=== PATIENT | female | born 1960 | race Caucasian/White ===

== ENCOUNTER 2016-05-28 10:00 | Emergency (ER) | payer BC, OTHER ==
[2016-05-28] MEDS ORDERED: SODIUM CHLORIDE 0.9% 1,000 ML IV STA (10:39)
[2016-05-28] MEDS ORDERED: HYDROmorphone 1 MG/ML 1 ML SYRINGE IVP STA ×2 (10:39→12:31)
[2016-05-28] MEDS ORDERED: ONDANSETRON 4 MG/2 ML VIAL IVP STA (10:39)
--- NOTE | 2016-05-28 10:42 | ED ---
General Adult HPI - General Chief complaint: Abdominal Pain Stated complaint: abd pain Time Seen by Provider: 05/28/16 10:31 Source: patient, RN notes reviewed Mode of arrival: wheelchair Limitations: no limitations - History of Present Illness Initial comments: Patient 56-year-old female who presents emergency room today with a chief complaint of increased left-sided flank pain. She does admit that she had lower back pain throughout the week but states today pain greatly increased left flank. She admits that she's had some numbness and tingling sensation to both her legs and feet. States it locked up on her. She does admit that she was hyperventilating. Patient states she's never had similar symptoms of of this in the past. Currently rates her pain 10/10 located in the left flank. Describes it as sharp. Does admit to feeling nauseated. Patient denies any recent fever, chills, shortness of breath, chest pain, dysuria or hematuria, constipation or diarrhea, headaches or visual changes, or any other complaints. - Related Data Home Medications Medication Instructions Recorded Confirmed Estradiol [Estrace] 1 mg PO DAILY 05/28/16 05/28/16 Ibuprofen [Motrin] 600 mg PO Q6HR PRN 05/28/16 05/28/16 Sertraline HCl [Zoloft] 100 mg PO DAILY 05/28/16 05/28/16 Previous Rx's Medication Instructions Recorded Ciprofloxacin HCl [Cipro] 500 mg PO Q12HR #20 day 05/28/16 Hydrocodone/Acetaminophen [[employer] 1 each PO Q6HR PRN #20 tab 05/28/16 5-325] Ibuprofen [Motrin] 600 mg PO Q6HR PRN #40 day 05/28/16 Ondansetron Odt [Zofran ODT] 4 mg PO Q8HR PRN #15 tab 05/28/16 Tamsulosin [Flomax] 0.4 mg PO DAILY #3 cap 05/28/16 Allergies Allergy/AdvReac Type Severity Reaction Status Date / Time No Known Allergies Allergy Verified 05/28/16 11:16 Review of Systems ROS Statement: Those systems with pertinent positive or pertinent negative responses have been documented in the HPI. ROS Other: All systems not noted in ROS Statement are negative. Past Medical History Past Medical History: No Reported History History of Any Multi-Drug Resistant Organisms: None Reported Past Surgical History: Appendectomy, Cholecystectomy, Hysterectomy, Orthopedic Surgery, Tonsillectomy Past Psychological History: No Psychological Hx Reported Smoking Status: Current every day smoker Past Alcohol Use History: None Reported Past Drug Use History: None Reported General Exam - General Exam Comments Initial Comments: General: The patient is awake and alert, moderate distress. Eye: Pupils are equal, round and reactive to light, extra-ocular movements are intact. No nystagmus. There is normal conjunctiva bilaterally. No signs of icterus. Ears, nose, mouth and throat: There are moist mucous membranes and no oral lesions. Neck: The neck is supple, there is no tenderness or JVD. Cardiovascular: There is a regular rate and rhythm. No murmur, rub or gallop is appreciated. Respiratory: Lungs are clear to auscultation, respirations are non-labored, breath sounds are equal. No wheezes, stridor, rales, or rhonchi. Gastrointestinal: Normal appearance of the abdomen. Normal bowel sounds. Patient does have tenderness in the left lower quadrant and left flank. Musculoskeletal: Normal ROM, no tenderness. Strength 5/5. Sensation intact. Pulses equal bilaterally 2+. Neurological: A&O x 3. CN II-XII intact, There are no obvious motor or sensory deficits. Coordination appears grossly intact. Speech is normal. Skin: Skin is warm and dry and no rashes or lesions are noted. Psychiatric: Cooperative, appropriate mood & affect, normal judgment. Limitations: no limitations Course Vital Signs 05/28/16 10:02 Temperature 96.6 F L Pulse Rate 91 Respiratory 28 H Rate Blood Pressure 139/95 O2 Sat by Pulse 99 Oximetry Medical Decision Making - Medical Decision Making Patient reexamined at this time shows no signs of distress. Patient's labs been reviewed. Does show large amount of blood with some white cells. Patient' s CT revealing a 5.77 L stone in the proximal left ureter. Results were discussed with the patient. Patient at this time is feeling comfortable. Patient will be discharged home she'll be started on antibiotics also given nausea medication pain medication go home with with Flomax. Patient is advised to follow-up urologist over the next 2 days. Advised return here to emergency room if any symptoms increase or worsen or for any other concerns. - Lab Data Result diagrams: 05/28/16 10:56 05/28/16 10:56 Lab Results 05/28/16 05/28/16 05/28/16 Range/Units 10:56 10:56 11:30 WBC 7.6 (3.8-10.6) k/uL RBC 4.80 (3.80-5.40) m/uL Hgb 14.5 (11.4-16.0) gm/dL Hct 43.8 (34.0-46.0) % MCV 91.2 (80.0-100.0) fL MCH 30.1 (25.0-35.0) pg MCHC 33.0 (31.0-37.0) g/dL RDW 12.8 (11.5-15.5) % Plt Count 297 (150-450) k/uL Neutrophils % 75 % Lymphocytes % 13 % Monocytes % 10 % Eosinophils % 1 % Basophils % 0 % Neutrophils # 5.6 (1.3-7.7) k/uL Lymphocytes # 1.0 (1.0-4.8) k/uL Monocytes # 0.7 (0-1.0) k/uL Eosinophils # 0.1 (0-0.7) k/uL Basophils # 0.0 (0-0.2) k/uL Sodium 141 (137-145) mmol/L Potassium 3.8 (3.5-5.1) mmol/L Chloride 107 (98-107) mmol/L Carbon Dioxide 22 (22-30) mmol/L Anion Gap 12 mmol/L BUN 24 H (7-17) mg/dL Creatinine 1.00 (0.52-1.04) mg/dL Est GFR (MDRD) Af Amer >60 (>60 ml/min/1.73 sqM) Est GFR (MDRD) Non-Af 58 (>60 ml/min/1.73 sqM) Glucose 98 (74-99) mg/dL Calcium 9.4 (8.4-10.2) mg/dL Total Bilirubin 1.2 (0.2-1.3) mg/dL AST 28 (14-36) U/L ALT 32 (9-52) U/L Alkaline Phosphatase 116 (38-126) U/L Total Protein 6.8 (6.3-8.2) g/dL Albumin 4.0 (3.5-5.0) g/dL Amylase 79 (30-110) U/L Lipase 109 (23-300) U/L Urine Color Yellow Urine Appearance Turbid H (Clear) Urine pH 6.5 (5.0-8.0) Ur Specific [place] 1.023 (1.001-1.035) Urine Protein 2+ H (Negative) Urine Glucose (UA) Negative (Negative) Urine Ketones 2+ H (Negative) Urine Blood Large H (Negative) Urine Nitrate Negative (Negative) Urine Bilirubin Negative (Negative) Urine Urobilinogen <2.0 (<2.0) mg/dL Ur Leukocyte Esterase Small H (Negative) Urine RBC >182 H (0-5) /hpf Urine WBC 16 H (0-5) /hpf Ur Squamous Epith Cells 40 H (0-4) /hpf Urine Bacteria Many H (None) /hpf Urine Mucus Many H (None) /hpf Disposition Clinical Impression: Kidney stone Disposition: HOME SELF-CARE Condition: Good Instructions: Kidney Stones (ED) Additional Instructions: Please follow-up urologist over the next 1-2 days. Please use medications as prescribed. Please return here to the emergency room if any symptoms increase worsen or for any other concerns as discussed. Prescriptions: Ciprofloxacin HCl [Cipro] 500 mg PO Q12HR #20 day Hydrocodone/Acetaminophen [[employer] 5-325] 1 each PO Q6HR PRN #20 tab PRN Reason: Pain Ibuprofen [Motrin] 600 mg PO Q6HR PRN #40 day PRN Reason: Pain Ondansetron Odt [Zofran ODT] 4 mg PO Q8HR PRN #15 tab PRN Reason: Nausea Tamsulosin [Flomax] 0.4 mg PO DAILY #3 cap Referrals: None,Stated [Primary Care Provider] - 1-2 days Eliceo Swanson MD [STAFF PHYSICIAN] - 1-2 days Time of Disposition: 13:17
[2016-05-28 11:27] LABS: Basophils % (A) 0 %; CH 30.8; CHCM 33.9; Eosinophils # (A) 0.1 k/uL (0-0.7); Eosinophils % (A) 1 %; HCT 43.8 % (34.0-46.0); HDW 2.29; HGB 14.5 gm/dL (11.4-16.0); Luc # (Auto) 0.14; Luc % (Auto) 2; Lymphocytes % (A) 13 %; MCH 30.1 pg (25.0-35.0); MCV 91.2 fL (80.0-100.0); Mean Platelet Volume 6.4; Monocytes # (A) 0.7 k/uL (0-1.0); Monocytes % (A) 10 %; Neutrophils # (A) 5.6 k/uL (1.3-7.7); Neutrophils % (A) 75 %; RDW 12.8 % (11.5-15.5); WBC 7.6 k/uL (3.8-10.6); WBC (Perox) 7.84
[2016-05-28 11:42] LABS: ALT 32 U/L (9-52); AST 28 U/L (14-36); Alkaline Phosphatase 116 U/L (38-126); Amylase 79 U/L (30-110); Anion Gap 12 mmol/L; Blood Urea Nitrogen 24 mg/dL (7-17); Calcium 9.4 mg/dL (8.4-10.2); Carbon Dioxide 22 mmol/L (22-30); Chloride 107 mmol/L (98-107); Glucose 98 mg/dL (74-99); Non-African American GFR(MDRD) 58 (>60 ml/min/1.73 sqM); Potassium 3.8 mmol/L (3.5-5.1); Sodium 141 mmol/L (137-145); Total Bilirubin 1.2 mg/dL (0.2-1.3); Total Protein 6.8 g/dL (6.3-8.2)
[2016-05-28 11:44] LABS: Appearance,Urine Turbid (Clear); Bacteria,Urine Many /hpf; Bilirubin,Urine Negative (Negative); Glucose,Urine (UA) Negative (Negative); Ketones,Urine 2+ (Negative); Leukocyte Esterase,Urine Small (Negative); Mucus,Urine Many /hpf; Nitrite,Urine Negative (Negative); PH, Urine 6.5 (5.0-8.0); Particle Count 55397; Protein,Urine 2+ (Negative); RBC,Urine >182 /hpf (0-5); Specific Gravity,Urine 1.023 (1.001-1.035); Squamous Epithelial Cell,Urine 40 /hpf (0-4); UA Billing (MACRO vs. MICRO) MICRO; Urobilinogen,Urine <2.0 mg/dL (<2.0); WBC,Urine 16 /hpf (0-5)
--- NOTE | 2016-05-28 12:02 | XR ---
Abdomen HISTORY: Left-sided pain for 3 days Frontal view of the abdomen correlated to prior abdomen 08 April 2013 Left paraspinal calcification measures approximately 8 mm compatible with proximal ureteral calculus on the left. Calcification superimposed over the right kidney measures approximately 7 to 8 mm, surgi lynn clips are present in the right upper quadrant. Breast prostheses are present. Lung bases show pos sible subsegmental atelectatic change. Air-fluid levels, air-filled loops of small bowel are present suggestive of ileus. IMPRESSION: Right-sided nephrolithiasis, proximal left ureteral calculus is suspected.
[2016-05-28] MEDS ORDERED: KETOROLAC 30 MG/ML 1 ML VIAL IVP STA (12:13)
--- NOTE | 2016-05-28 12:25 | CT ---
EXAMINATION TYPE: CT abdomen pelvis wo con DATE OF EXAM: 05/28/2016 12:04 PM COMPARISON: Abdomen film same date, CT abdomen pelvis 08 April 2013 HISTORY: Hematuria, Lt flank pain CT DLP: 717 mGycm Automated exposure control for dose reduction was used. TECHNIQUE: Helical acquisition of images from the lung bases through the pelvis. FINDINGS: Lack of intravenous contrast could compromise sensitivity. LUNG BASES: Some minimal basilar atelectatic changes are present as noted on plain film. AORTA: No significant abnormality is appreciated. LIVER/GB: Cystic focus measuring 15 mm within the left lobe is likely benign. Patient is post cholecy stectomy. PANCREAS: No significant abnormality is seen. SPLEEN: No significant abnormality is seen. ADRENALS: No significant abnormality is seen. KIDNEYS: Left kidney shows hydronephrosis. There is a nonobstructive calculus at the lower pole measu ring approximately 2 mm, additional 1 mm nonobstructive calculus present posteriorly at the left lung base, punctate calcifications measuring 1 mm scattered within the left kidney. Nonobstructive right renal calculus measures 6 to 7 mm. There is likely a cortical cyst at the mid to lower pole which is poorly defined measuring approximately 12 mm. Proximal left ureteral calculus is present measuring ap proximately 5.7 x 7 mm in size. There is some minimal stranding adjacent to the kidney and proximal u reter. REPRODUCTIVE ORGANS: Uterus is not seen. Ovaries not seen with certainty. URINARY BLADDER: Unremarkable. There are likely phleboliths in the pelvis. BOWEL: No significant abnormality is seen. FREE AIR: No Free Air is visible. ASCITES: None visible. PELVIC ADENOPATHY: None visualized. RETROPERITONEAL ADENOPATHY: No Retroperitoneal Adenopathy visible. OSSEOUS STRUCTURES: No significant abnormality is seen. IMPRESSION: PROXIMAL LEFT URETERAL CALCULUS NOTED ON PLAIN FILM WITH HYDRONEPHROSIS. BILATERAL NEPHROLITHIASIS . NONCONTRAST EXAM. POSTOP CHANGES. ADDITIONAL FINDINGS ABOVE.
[2016-05-28 13:45] VITALS: BP 138/79; PULSE 79; RESP 18; TEMP 97.7
== END 2016-05-28 13:45 | disposition home or self-care (01) ==
LOC: EC 10:00
DX: N20.0 Calculus of kidney (principal); N13.2 Hydronephrosis with renal and ureteral calculous obstruction; Z87.442 Personal history of urinary calculi; Z79.899 Other long term (current) drug therapy; F17.200 Nicotine dependence, unspecified, uncomplicated
CPT/HCPCS: 36415; 80053; 82150; 83690; 85025; 81001; 87086; 74000; 74176; 99284; 96374; 96375 ×2; 96376; 96361 ×3; J2405; J1885; J1170

== ENCOUNTER 2016-05-29 10:47 | Observation (INO) | payer OTHER ==
[2016-05-29] MEDS ORDERED: ONDANSETRON 4 MG/2 ML VIAL IVP PRN (13:30)
[2016-05-29] MEDS ORDERED: KETOROLAC 30 MG/ML 1 ML VIAL IM PRN (13:31)
[2016-05-29] MEDS: MORPHINE SULFATE 2 MG/ML SYRINGE IV PRN ×3 (15:19→21:38)
[2016-05-29] MEDS: DEXTROSE 5%-0.45% NACL 1,000 ML IV SCH (15:25)
[2016-05-29] MEDS ORDERED: ceFAZolin 2 GM in SODIUM CHLORIDE 0.9% 100 ML IVPB ONE (18:49)
[2016-05-29] MEDS: HYDROcodone/APAP 5-325MG 1 EACH TAB PO PRN (19:31)
[2016-05-30] MEDS: MORPHINE SULFATE 2 MG/ML SYRINGE IV PRN ×2 (00:09→22:18)
[2016-05-30] MEDS: DEXTROSE 5%-0.45% NACL 1,000 ML IV SCH ×4 (00:10→22:37)
[2016-05-30] MEDS: HYDROcodone/APAP 5-325MG 1 EACH TAB PO PRN ×3 (02:58→20:15)
[2016-05-30] MEDS ORDERED: IV FLUID CONTINUATION 900 ML IV ONE (08:23)
[2016-05-30] MEDS ORDERED: LACTATED RINGERS 1,000 ML IV ONE (09:20)
--- NOTE | 2016-05-30 09:55 | P.OP ---
Date of Procedure: 05/30/16 Preoperative Diagnosis: Left Ureteral Calculus, Left Renal Calculus Postoperative Diagnosis: Same Procedure(s) Performed: Cystoscopy, left ureteroscopy with Holmium laser lithotripsy and stone basketing , left ureteral stent insertion Anesthesia: LEOBARDOA Surgeon: Eliceo Swanson Estimated Blood Loss (ml): 0 IV fluids (ml): 900 Pathology: other (Calculus fragments, sent for chemical analysis.) Condition: stable Disposition: PACU Indications for Procedure: The patient is a 56-year-old white female admitted with left renal colic due to a 7 mm left proximal ureteral calculus. Alternative treatment options were reviewed, and she elected to undergo ureteroscopy with laser lithotripsy. He was reviewed in detail with the patient and her family. Potential risks were explained, including anesthesia, ureteral injury, and inability to successfully remove the calculus. The need for a ureteral stent postoperatively was also discussed. Operative Findings: Left proximal ureteral calculus, fragmented and removed via stone basketing.. Tiny left lower pole renal calculus. Description of Procedure: The patient was taken to the operating room and placed in the dorsolithotomy position, with legs supported in Naresh stirrups. The external genitalia was prepped and draped sterilely. The 30 lens was used to introduce the 19-Stateless Stortz cystoscopic sheath through the urethra and into the bladder under direct vision. The bladder was examined in its entirety. Both ureteral orifices were normal anatomic location and configuration. No tumors or foreign bodies were seen. A 0.038 inch Glidewire was passed through the cystoscope. The left ureteral orifice was cannulated, and the Glidewire was slowly advanced up to the left renal pelvis. An 11/13-Stateless ureteral access catheter was passed over the wire , up to the mid ureter. The Olympus flexible ureteroscope was passed through the ureteral access catheter sheath and up to the calculus, which was located within the proximal ureter. The 200 micron Holmium laser probe was passed through the ureteroscope, and lithotripsy was performed. The calculus was not particularly dense, and it fragmented well. A portion of the calculus refluxed into an upper pole calyx within the left kidney, where fragmentation was completed. A 1.9-Stateless nitinol basket was used to remove the calculus fragments, which were saved and sent for chemical analysis. The lower pole renal calculus was located, but was so small that it could not be engaged within the basket and removed. It ultimately removed into another lower pole calyx where it could no longer be located. The ureteroscope was slowly withdrawn under direct vision, to confirm that there were no residual calculus fragments within the ureter and also to confirm the absence of a ureteral perforation (neither was seeen). The Glidewire was passed through the ureteral access catheter sheath and up to the left renal pelvis. The ureteral access catheter sheath was then removed, and the Glidewire was backloaded into the cystoscope, which was passed into the bladder. A 24 cm, 4.8-Stateless double-J ureteral stent was placed over the wire. Proper stent positioning was verified fluoroscopically and endoscopically. The bladder was emptied and the cystoscope removed. The patient tolerated the procedure well and was taken to the recovery room in stable condition.
[2016-05-30] MEDS: HYDROmorphone 1 MG/ML 1 ML SYRINGE IVP ONE ×2 (10:00→10:06)
[2016-05-31] MEDS: HYDROcodone/APAP 5-325MG 1 EACH TAB PO PRN ×2 (01:07→10:44)
[2016-05-31] MEDS: DEXTROSE 5%-0.45% NACL 1,000 ML IV SCH (05:27)
[2016-05-31 08:06] VITALS: BP 138/72; PULSE 70; RESP 16; TEMP 98
[2016-05-31] MEDS: MORPHINE SULFATE 2 MG/ML SYRINGE IV PRN (08:19)
[2016-05-31] MEDS ORDERED: PROPOFOL 10 MG/ML 20 ML VIAL IV ONE (08:23)
[2016-05-31] MEDS ORDERED: fentaNYL (PF) 50 MCG/ML 2 ML AMP ONE (08:23)
[2016-05-31] MEDS ORDERED: MIDAZOLAM 2 MG/2 ML VIAL ONE (08:23)
[2016-05-31] MEDS ORDERED: ePHEDrine 50 MG/ML 1 ML AMP ONE (08:23)
[2016-05-31] MEDS ORDERED: ESMOLOL 100 MG/10 ML VIAL ONE (08:23)
[2016-05-31] MEDS ORDERED: GLYCOPYRROLATE 0.2 MG/ML 2 ML VIAL ONE (08:23)
--- NOTE | 2016-05-31 08:45 | P.DS ---
Providers Date of admission: 05/29/16 11:34 Expected date of discharge: 05/31/16 Attending physician: Pelon Chery Primary care physician: Pelon Chery [facility] Hospital Course: On the day of admission, the patient was treated with IV hydration and parenteral analgesics. On May 30, she underwent left ureteroscopy with Holmium laser lithotripsy and stone basketing. The ureteral calculus was removed in its entirety, and a ureteral stent was placed. Postoperatively, her pain was much improved, though she continued to experience mild left lower quadrant abdominal discomfort and terminal dysuria. She was afebrile with stable vital signs. Procedures: Cystoscopy, left ureteroscopy with Holmium laser lithotripsy and stone basketing , left ureteral stent insertion on 05/30/2016. Patient Condition at Discharge: Good Plan - Discharge Summary Discharge Medication List Ciprofloxacin HCl [Cipro] 500 mg PO Q12HR #20 day 05/28/16 [Rx] Estradiol [Estrace] 1 mg PO DAILY 05/28/16 [History] Hydrocodone/Acetaminophen [[place] 5-325] 1 each PO Q6HR PRN #20 tab 05/28/16 [Rx] Ibuprofen [Motrin] 600 mg PO Q6HR PRN #40 day 05/28/16 [Rx] Ondansetron Odt [Zofran ODT] 4 mg PO Q8HR PRN #15 tab 05/28/16 [Rx] Sertraline HCl [Zoloft] 100 mg PO DAILY 05/28/16 [History] Tamsulosin [Flomax] 0.4 mg PO DAILY #3 cap 05/28/16 [Rx] Activity/Diet/Wound Care/Special Instructions: Diet as tolerated. Activities as tolerated. Drink plenty of fluids. Patient shouldn't take tamsulosin, and [place] as needed. Ciprofloxacin can be discontinued on 06/01/2016. She will be contacted by my office to be scheduled to undergo removal of her ureteral stent in the office on 06/04/2016. Discharge Disposition: HOME SELF-CARE
--- NOTE | 2016-05-31 12:40 | FL ---
EXAMINATION TYPE: FL guidance operating room DATE OF EXAM: 05/30/2016 9:57 AM FLUOROSCOPY Fluoroscopy time of 35 seconds was used during urologic intervention for left kidney stone and cystos copy. 2 image/s document/s the procedure.
== END 2016-05-31 11:25 | disposition home or self-care (01) ==
LOC: 3OBS 11:34
PROVIDERS: ADMIT Urology; ATTEND Urology
DX: N13.2 Hydronephrosis with renal and ureteral calculous obstruction (principal); F17.200 Nicotine dependence, unspecified, uncomplicated; Z79.899 Other long term (current) drug therapy; Z79.1 Long term (current) use of non-steroidal anti-inflammatories (NSAID); Z79.891 Long term (current) use of opiate analgesic
CPT/HCPCS: 52356; 52352; 96372; 96374; 96376 ×2; 82365; G0378 ×3; G0379; C2625; C1769; C1894; J2250; J0690; J2405; J3010; J1885; J2270 ×3; J1170; J2704

== ENCOUNTER → 2016-06-26 | Outpatient (CLI) | payer OTHER ==
--- NOTE | 2016-06-26 07:56 | US ---
EXAMINATION TYPE: US kidneys/renal and bladder DATE OF EXAM: 06/26/2016 7:44 AM COMPARISON: CT in PACS CLINICAL HISTORY: R93.4 History of Hydronephrosis. Right flank pain, history of renal stones EXAM MEASUREMENTS: Right Kidney: 11.5 x 3.9 x 4.7 cm Left Kidney: 11.4 x 4.6 x 4.7 cm Findings: Right Kidney: No evidence of hydro/ Cyst lower pole= 1.1 x 1.0 x 1.0 cm/ Probable calculus at mid= 0. 8 cm Left Kidney: Appeared wnl, no evidence of hydro Bladder: wnl Bilateral Jets seen: Yes There is no evidence for hydronephrosis at this point in time. No nephrolithiasis is seen. No juma s are identified. The urinary bladder is anechoic. Bilateral ureteral jets are seen. IMPRESSION: Simple cyst lower pole right kidney. 8 mm nonobstructing right renal calculus.
== END | disposition home or self-care (01) ==
LOC: RADUSWWP 07:25
PROVIDERS: ATTEND Urology
DX: N20.0 Calculus of kidney (principal); N28.1 Cyst of kidney, acquired; Z87.448 Personal history of other diseases of urinary system
CPT/HCPCS: 76770

== ENCOUNTER → 2016-12-02 | Outpatient (CLI) | payer OTHER ==
[2016-12-02 15:03] LABS: Basophils % (A) 0 %; CH 30.3; CHCM 32.8; Eosinophils # (A) 0.2 k/uL (0-0.7); Eosinophils % (A) 2 %; HCT 45.6 % (34.0-46.0); HDW 2.27; HGB 15.2 gm/dL (11.4-16.0); Luc # (Auto) 0.21; Luc % (Auto) 3; Lymphocytes # (A) 1.9 k/uL (1.0-4.8); Lymphocytes % (A) 26 %; MCHC 33.3 g/dL (31.0-37.0); MCV 92.9 fL (80.0-100.0); Mean Platelet Volume 6.5; Monocytes # (A) 0.6 k/uL (0-1.0); Monocytes % (A) 8 %; Neutrophils # (A) 4.3 k/uL (1.3-7.7); Neutrophils % (A) 60 %; RBC 4.91 m/uL (3.80-5.40); RDW 13.1 % (11.5-15.5); WBC 7.2 k/uL (3.8-10.6); WBC (Perox) 7.38
[2016-12-02 15:36] LABS: Anion Gap 10 mmol/L; Blood Urea Nitrogen 19 mg/dL (7-17); Calcium 9.1 mg/dL (8.4-10.2); Carbon Dioxide 26 mmol/L (22-30); Chloride 105 mmol/L (98-107); Glucose 82 mg/dL (74-99); Non-African American GFR(MDRD) >60 (>60 ml/min/1.73 sqM); Potassium 4.1 mmol/L (3.5-5.1); Sodium 141 mmol/L (137-145)
== END | disposition home or self-care (01) ==
LOC: LABPAT 14:45
PROVIDERS: ATTEND Urology
DX: Z01.812 Encounter for preprocedural laboratory examination (principal); N20.0 Calculus of kidney; N39.0 Urinary tract infection, site not specified; R35.0 Frequency of micturition; Z79.899 Other long term (current) drug therapy
CPT/HCPCS: 80048; 85025; 87086

== ENCOUNTER 2016-12-11 10:09 | Day surgery (SDC) | payer OTHER ==
[2016-12-08 10:35] VITALS: BMI 22.8
[~2016-12-11 10:09] MED LIST: DEXAMETHASONE SOD PHOSPHATE 10 MG/ML 1 ML VIAL IV ONE; HYDROmorphone 1 MG/ML 1 ML SYRINGE IVP PRN; LACTATED RINGERS 1,000 ML IV SCH; MIDAZOLAM 2 MG/2 ML VIAL IV PRN; ONDANSETRON 4 MG/2 ML VIAL IVP ONE; SCOPOLAMINE 1.5MG/72HR PATCH TRANSDERM ONE; ceFAZolin 2 GM in SODIUM CHLORIDE 0.9% 100 ML IVPB ONE
--- NOTE | 2016-12-11 10:16 | XR ---
EXAMINATION TYPE: XR KUB DATE OF EXAM: 12/11/2016 COMPARISON: 05/28/2016 INDICATION: Preop lithotripsy TECHNIQUE: Single view abdomen supine FINDINGS: There is a normal bowel gas pattern. Psoas margins are normal. No organomegaly is present. There is a 0.8 cm calcification over the mid right kidney. Punctate calcification in the inferior marcelino e left kidney measuring 0.2 cm is not excluded this could be within fecal debris. Phleboliths within the pelvis. Examination appears stable from 05/28/2016 IMPRESSION: 1. 0.8 cm mid right renal calcification.
[2016-12-11] MEDS ORDERED: LIDOCAINE 1% 20 ML VIAL (10MG/ML) FOR IV START INTRADERMA ONE (10:32)
[2016-12-11] MEDS ORDERED: MIDAZOLAM 2 MG/2 ML VIAL ONE (11:56)
[2016-12-11] MEDS ORDERED: LIDOCAINE 1% INJ 10MG/ML (20 ML MDV) ONE (11:56)
[2016-12-11] MEDS ORDERED: SUCCINYLCHOLINE CHLORIDE 100 MG/5 ML SYR IV ONE (11:56)
[2016-12-11] MEDS ORDERED: fentaNYL (PF) 50 MCG/ML 2 ML AMP ONE (11:56)
[2016-12-11] MEDS ORDERED: NEOSTIGMINE 1 MG/ML 10 ML VIAL ONE (11:56)
[2016-12-11] MEDS ORDERED: ROCURONIUM BROMIDE 10 MG/ML 10 ML VIAL IV ONE (11:56)
[2016-12-11] MEDS ORDERED: GLYCOPYRROLATE 0.2 MG/ML 2 ML VIAL ONE (11:56)
[2016-12-11] MEDS ORDERED: PROPOFOL 10 MG/ML 20 ML VIAL IV ONE (11:56)
[2016-12-11] MEDS ORDERED: KETOROLAC 30 MG/ML 1 ML VIAL ONE (11:56)
--- NOTE | 2016-12-11 13:23 | P.OP ---
Date of Procedure: 12/11/16 Preoperative Diagnosis: Right renal calculus Postoperative Diagnosis: Same Procedure(s) Performed: Cystoscopy, right ureteroscopy with Holmium laser lithotripsy, right ureteral stent insertion Implants: Anesthesia: LEOBARDOA Surgeon: Eliceo Swanson Estimated Blood Loss (ml): 5 IV fluids (ml): 700 Pathology: none sent Condition: stable Disposition: PACU Indications for Procedure: She is a 56 year old female with no prior history of kidney stones. She presented with left renal colic due to a left proximal ureteral calculus. She underwent left ureteroscopy with laser lithotripsy to remove the calculus in May 2016. A Litholink study showed oliguria and hypocitraturia, and she was advised to increase her fluid intake and take TheraLith. She now desires treatment for her right renal calculus, and will thus undergo ureteroscopy with laser lithotripsy. Operative Findings: 8 mm mid-pole calculus, fragmented to completion. Description of Procedure: The patient was taken to the operating room and placed in the dorsolithotomy position, with legs supported in Naresh stirrups. The external genitalia was prepped and draped sterilely. The 30 lens was used to introduce the 19-[place] Stortz cystoscopic sheath through the urethra and into the bladder under direct vision. The bladder was examined in its entirety. Both ureteral orifices were normal anatomic location and configuration, and clear urine effluxed from both. No tumors or foreign bodies were seen. A 0.038 inch Glidewire was passed through the cystoscope. The right ureteral orifice was cannulated, and the Glidewire was advanced up to the right renal pelvis. An 11/13-[place]ian ureteral access catheter was passed over the wire, but resistance was met at the level of the iliac vessels. Therefore, the ureteral access catheter was removed and the Olympus flexible ureteroscope was advanced over the Glidewire, up to the right renal pelvis. The 200 micron Holmium laser probe was passed through the ureteroscope, and lithotripsy was performed. Using a dusting technique, the calculus was fragmented completely. There were no residual calculus fragments exceeding the diameter of the laser fiber tip. The Glidewire was passed through the ureteroscope, which was then removed. The Glidewire was backloaded into the cystoscope, which was passed into the bladder. A 24 cm, 4.8-[place] double-J ureteral stent was placed over the wire. Proper stent positioning was verified fluoroscopically and endoscopically. The bladder was emptied and the cystoscope removed. The patient tolerated the procedure well and was taken to the recovery room in stable condition.
--- NOTE | 2016-12-11 13:26 | FL ---
Fluoroscopy INDICATION: Pain FINDINGS: Fluoroscopy time: 9 seconds. Images obtained: 1. IMPRESSIONS: 1. Documentation of fluoroscopy.
[2016-12-11] MEDS ORDERED: LACTATED RINGERS 1,000 ML IV ONE (13:30)
[2016-12-11 13:44] VITALS: TEMP 97
[2016-12-11 14:07] VITALS: RESP 16
[2016-12-11] MEDS ORDERED: ONDANSETRON 4 MG/2 ML VIAL IVP ONE (14:07)
[2016-12-11] MEDS ORDERED: METOCLOPRAMIDE 5 MG/ML 2 ML VIAL IVP ONE (14:21)
[2016-12-11 15:05] VITALS: PULSE 55
[2016-12-11 15:44] VITALS: BP 143/80
== END 2016-12-11 16:04 | disposition home or self-care (01) ==
LOC: OR 10:09
PROVIDERS: ATTEND Urology
DX: N13.2 Hydronephrosis with renal and ureteral calculous obstruction (principal); Z79.1 Long term (current) use of non-steroidal anti-inflammatories (NSAID); Z79.891 Long term (current) use of opiate analgesic; Z79.899 Other long term (current) drug therapy
CPT/HCPCS: 74000; 50590; 52332; C2625; C1769; C1894; J2250; J1100; J2710; J2765; J0690; J2405; J2001; J3010; J1885; J0330; J2704

== ENCOUNTER → 2016-12-22 | Outpatient (CLI) | payer OTHER ==
--- NOTE | 2016-12-22 17:05 | US ---
EXAMINATION TYPE: US kidneys/renal and bladder DATE OF EXAM: 12/22/2016 COMPARISON: 06/26/2016 ultrasound. CLINICAL HISTORY: N20.0 Calculus of kidney; right flank pain, hematuria; right renal stone was retrie mona 11 days ago EXAM MEASUREMENTS: Right Kidney: 11.1 x 4.8 x 3.8 cm Left Kidney: 11.4 x 4.0 x 4.8 cm Post Void Residual Volume: 14.2 mL Right Kidney: mid cortical cyst = 0.8 x 0.9 x 0.7cm and inferior cortical cyst = 0.7 x 0.7 x 0.6cm Left Kidney: No hydronephrosis or masses seen Bladder: wnl Bilateral Jets seen: Yes Normal Post Void Residual: Yes IMPRESSION: Small right renal cortical cysts. No evidence of solid renal mass or obstruction. Satisfactory bladde r emptying. A calculus in the right kidney is not identified that is suggested by the previous ultras ound exam.
== END ==
LOC: RADUSWWP 16:10
PROVIDERS: ATTEND Urology
DX: N28.1 Cyst of kidney, acquired (principal)
CPT/HCPCS: 76770

== ENCOUNTER 2018-02-12 18:20 | Observation (INO) | payer BC, OTHER ==
[2018-02-12] MEDS ORDERED: KETOROLAC 30 MG/ML 1 ML VIAL IVP STA (18:40)
[2018-02-12] MEDS ORDERED: SODIUM CHLORIDE 0.9% 500 ML 500 ML IV STA (18:40)
[2018-02-12] MEDS ORDERED: HYDROmorphone 1 MG/ML 1 ML SYRINGE IVP STA (18:40)
[2018-02-12] MEDS ORDERED: ONDANSETRON 4 MG/2 ML VIAL IVP STA (18:40)
--- NOTE | 2018-02-12 18:54 | ED ---
General Adult HPI - General Chief complaint: Abdominal Pain Stated complaint: POSS KIDNEY STONES Time Seen by Provider: 02/12/18 18:37 Source: patient, family, RN notes reviewed, old records reviewed Mode of arrival: ambulatory Limitations: no limitations - History of Present Illness Initial comments: Chief complaint and history of present illness a 77-year-old female here for complaint of nausea and acute severe left flank pain radiates around toward the left lower quadrant. Patient states she had a kidney stone proximal one year ago and this feels like another stone. The pain started acutely at 1 PM today. - Related Data Home Medications Medication Instructions Recorded Confirmed Estradiol [Estrace] 1 mg PO DAILY 05/28/16 12/11/16 Sertraline [Zoloft] 50 mg PO DAILY 12/08/16 12/11/16 Previous Rx's Medication Instructions Recorded Hydrocodone/Acetaminophen [[place] 1 - 2 each PO Q4HR PRN #20 tab 12/11/16 5-325] Allergies Allergy/AdvReac Type Severity Reaction Status Date / Time No Known Allergies Allergy Verified 12/08/16 10:21 Review of Systems ROS Statement: Those systems with pertinent positive or pertinent negative responses have been documented in the HPI. Review of systems no other complaints other than left flank pain that radiates around toward the left mid to lower abdomen. Nausea no vomiting. Patient can' t sit still because of the pain. At 1 PM she developed abdominal discomfort large amount of diarrhea and flank pain. Also the pain was acute onset typical of her kidney stones in the past. All systems reviewed. Past medical problems significant for kidney stones. The patient's surgeries include appendectomy, cholecystectomy, hysterectomy, bilateral knee surgeries and tonsillectomy. Family history noncontributory. The patient is a smoker strongly encouraged to stop denies alcohol use this time. ALLERGIES none. ROS Other: All systems not noted in ROS Statement are negative. Past Medical History Past Medical History: No Reported History Additional Past Medical History / Comment(s): KIDNEY STONES. History of Any Multi-Drug Resistant Organisms: None Reported Past Surgical History: Appendectomy, Cholecystectomy, Hysterectomy, Orthopedic Surgery, Tonsillectomy Additional Past Surgical History / Comment(s): bilateral knee arthroscopies and open bilateral knee surgeries, L hip cyst removed., LEFT URETERAL CALCULUS- LITHOTRIPSY WITH STONE BASKETING AND STENT (05/30/16) Past Anesthesia/Blood Transfusion Reactions: No Reported Reaction Past Psychological History: Anxiety Smoking Status: Current every day smoker Past Alcohol Use History: None Reported Past Drug Use History: None Reported - Past Family History Mother Family Medical History: No Reported History Father Family Medical History: Coronary Artery Disease (CAD) Additional Family Medical History / Comment(s): Father is 72yrs old. General Exam Limitations: no limitations Course Vital Signs 02/12/18 02/12/18 02/12/18 18:28 19:02 19:03 Temperature 97.5 F L Pulse Rate 92 87 97 Respiratory 18 16 16 Rate Blood Pressure 160/89 164/103 O2 Sat by Pulse 98 95 100 Oximetry 02/12/18 02/12/18 19:50 20:00 Temperature 98.0 F Pulse Rate 97 Respiratory 18 Rate Blood Pressure 152/98 152/98 O2 Sat by Pulse 99 Oximetry Medical Decision Making - Medical Decision Making Medical decision making; this is a 57-year-old female with known history of kidney stones. She also has terrible bowel syndrome. At approximate 1 PM today she developed acute discomfort had diarrhea and the pain persists from the left flank toward the left lower quadrant area. Labs show white count of 10.7 hemoglobin 15.7 hematocrit 47 with a potassium 4.7. BUN 23 creatinine 0.93 to GFR 70. The patient's sugar is 133, creatinine elevated 11.3. The patient's amylase is 114 lipase 146. Urine shows moderate blood with 53 rbc's and 7 WBCs. Otherwise no signs of infection. X-ray of the abdomen and pelvis was done and reviewed by radiologist his impression is ; suspected 6 mm and 4 mm calculi located in the proximal left ureter. Correlate for renal colic. As read by Dr. Bailon urine was cultured CT of the abdomen and pelvis is done without IV contrast. Significant findings nonobstructive 4 mm adjacent punctate 2 mm calculi in the right kidney and stable subtle 1 cm hyperdensity lateral mid lower pole right kidney probably a cyst given his stability. There is moderate left-sided hydronephrosis with prominent perinephric edema. Nonobstructive punctate 2 mm calculi in the left kidney and 2 adjacent 4 and 3 mm calculi in the upper left ureter. No dilated small bowel, free fluid or free air. No mesenteric or retroperitoneal lymphadenopathy. Impression #14 mm and adjacent 3 mm calculus in the upper left ureter causing moderate obstructive uropathy. #2 there is extensive perinephric edema and fluid that could represent pyelosinus backflow rupture with urine extravasation or superimposed infection. The edema is more than expected for the degree of obstruction. #3 additional small nonobstructive calculi measuring up to 4 mm. Number for mild sigmoid diverticulosis. As read by Dr. Bailon. Case discussed with Dr. Chery, patient be admitted his service for further evaluation and management. Labs, x-ray and CT report discussed with patient and her urologist. - Lab Data Result diagrams: 02/12/18 18:48 02/12/18 18:48 Lab Results 02/12/18 02/12/18 02/12/18 Range/Units 18:48 18:48 20:10 WBC 10.7 H (3.8-10.6) k/uL RBC 5.08 (3.80-5.40) m/uL Hgb 15.7 (11.4-16.0) gm/dL Hct 47.2 H (34.0-46.0) % MCV 92.9 (80.0-100.0) fL MCH 30.8 (25.0-35.0) pg MCHC 33.2 (31.0-37.0) g/dL RDW 12.9 (11.5-15.5) % Plt Count 347 (150-450) k/uL Neutrophils % 80 % Lymphocytes % 11 % Monocytes % 6 % Eosinophils % 1 % Basophils % 0 % Neutrophils # 8.6 H (1.3-7.7) k/uL Lymphocytes # 1.2 (1.0-4.8) k/uL Monocytes # 0.7 (0-1.0) k/uL Eosinophils # 0.1 (0-0.7) k/uL Basophils # 0.0 (0-0.2) k/uL Sodium 138 (137-145) mmol/L Potassium 4.7 (3.5-5.1) mmol/L Chloride 105 (98-107) mmol/L Carbon Dioxide 22 (22-30) mmol/L Anion Gap 11 mmol/L BUN 23 H (7-17) mg/dL Creatinine 0.93 (0.52-1.04) mg/dL Est GFR (CKD-EPI)AfAm 81 (>60 ml/min/1.73 sqM) Est GFR (CKD-EPI)NonAf 70 (>60 ml/min/1.73 sqM) Glucose 133 H (74-99) mg/dL Calcium 11.3 H (8.4-10.2) mg/dL Total Bilirubin 0.8 (0.2-1.3) mg/dL AST 36 (14-36) U/L ALT 30 (9-52) U/L Alkaline Phosphatase 102 (38-126) U/L Total Protein 7.9 (6.3-8.2) g/dL Albumin 4.8 (3.5-5.0) g/dL Amylase 114 H (30-110) U/L Lipase 146 (23-300) U/L Urine Color Light Yellow Urine Appearance Clear (Clear) Urine pH 7.0 (5.0-8.0) Ur Specific [place] 1.008 (1.001-1.035) Urine Protein Negative (Negative) Urine Glucose (UA) Negative (Negative) Urine Ketones Negative (Negative) Urine Blood Moderate H (Negative) Urine Nitrite Negative (Negative) Urine Bilirubin Negative (Negative) Urine Urobilinogen <2.0 (<2.0) mg/dL Ur Leukocyte Esterase Trace H (Negative) Urine RBC 53 H (0-5) /hpf Urine WBC 7 H (0-5) /hpf Ur Squamous Epith Cells 2 (0-4) /hpf Urine Bacteria Few H (None) /hpf Urine Mucus Few H (None) /hpf Disposition Clinical Impression: Calcium ureterolithiasis Disposition: ADMITTED IP TO THIS [facility] Condition: Serious Is patient prescribed a controlled substance at d/c from ED?: No Referrals: None,Stated [Primary Care Provider] - 1-2 days
[2018-02-12 18:59] LABS: Basophils % (A) 0 %; Eosinophils # (A) 0.1 k/uL (0-0.7); Eosinophils % (A) 1 %; HCT 47.2 % (34.0-46.0); HGB 15.7 gm/dL (11.4-16.0); Lymphocytes # (A) 1.2 k/uL (1.0-4.8); Lymphocytes % (A) 11 %; MCH 30.8 pg (25.0-35.0); MCHC 33.2 g/dL (31.0-37.0); MCV 92.9 fL (80.0-100.0); Mean Platelet Volume 6.6; Monocytes # (A) 0.7 k/uL (0-1.0); Monocytes % (A) 6 %; Neutrophils # (A) 8.6 k/uL (1.3-7.7); Neutrophils % (A) 80 %; Platelet Count 347 k/uL (150-450); RBC 5.08 m/uL (3.80-5.40); RDW 12.9 % (11.5-15.5); WBC 10.7 k/uL (3.8-10.6)
[2018-02-12 19:08] LABS: Albumin 4.8 g/dL (3.5-5.0); Calcium 11.3 mg/dL (8.4-10.2); Potassium 4.7 mmol/L (3.5-5.1); Total Bilirubin 0.8 mg/dL (0.2-1.3); Total Protein 7.9 g/dL (6.3-8.2)
--- NOTE | 2018-02-12 19:33 | XR ---
EXAMINATION TYPE: XR KUB DATE OF EXAM: 02/12/2018 CLINICAL DATA: 57 year-old female left flank pain, PHH COMPARISON: 12/11/2016 FINDINGS: Lung bases are clear. No evidence for free intraperitoneal air. No dilated small bowel or air-fluid levels. Scattered air and stool seen throughout the colon extendi ng distally into the rectum. No significant stool burden. No suspicious calcifications identified. Previous calcification seen in the left midabdomen are more inferiorly and medially positioned now. This seems to be 2 calculi measuring 6 mm and 4 mm cyst. Ther e are the L3-L4 level paralleling the transverse processes. Mild degenerative changes at the hips. IMPRESSION: Suspected 6 mm and 4 mm calculi located in the proximal left ureter. Correlate for renal colic.
[2018-02-12 20:23] LABS: Appearance,Urine Clear (Clear); Bacteria,Urine Few /hpf; Bilirubin,Urine Negative (Negative); Blood,Urine Moderate (Negative); Color,Urine Light Yellow; Glucose,Urine (UA) Negative (Negative); Ketones,Urine Negative (Negative); Leukocyte Esterase,Urine Trace (Negative); Mucus,Urine Few /hpf; Nitrite,Urine Negative (Negative); Protein,Urine Negative (Negative); RBC,Urine 53 /hpf (0-5); Specific Gravity,Urine 1.008 (1.001-1.035); Squamous Epithelial Cell,Urine 2 /hpf (0-4); Urobilinogen,Urine <2.0 mg/dL (<2.0); WBC,Urine 7 /hpf (0-5)
--- NOTE | 2018-02-12 20:32 | CT ---
EXAMINATION TYPE: CT abdomen pelvis wo con DATE OF EXAM: 02/12/2018 COMPARISON: 05/28/2016 HISTORY: 57-year-old female Left side flank and groin pain. CT DLP: 344.7 mGycm. Automated exposure control for dose reduction was used. TECHNIQUE: Contiguous axial scanning of the abdomen and pelvis without IV contrast. Coronal and sagit ronnell reconstructions performed. FINDINGS: Heart normal size with trace anterior pericardial fluid. Dependent atelectasis without pleural effusi on. Noncontrast images of the liver show a 1.7 cm cyst centrally in the right lobe, unchanged. Cholecyste ctomy clips. Liver mildly enlarged at 18.2 cm. Mild diffuse thickening of the left adrenal gland is unchanged. Right adrenal gland within normal lynch its. Nonobstructive 4 mm an adjacent punctate 2 mm calculi in the right kidney and stable subtle 1 cm hypo density lateral mid to lower pole right kidney probably a cyst given its stability. Spleen and pancreas show no gross abnormality by noncontrast CT. There is moderate left-sided hydronephrosis with prominent perinephric edema. Nonobstructive punctate 2 mm calculi in the left kidney and 2 adjacent 4 and 3 mm calculi in the upper left ureter.. No dilated small bowel, free fluid, or free air. No mesenteric or retroperitoneal lymphadenopathy. Pgms-qm-nlcaalne stool in the right hemicolon and mild sigmoid diverticulosis. No pericolonic inflamm atory change. Multiple pelvic phleboliths. Bladder is urine distended. Prostate gland measures 3.9 cm wide. No abno rmal fluid collection in the pelvis or pelvic lymphadenopathy. Bones: Mild degenerative changes at the hips. No osseous destructive process. IMPRESSION: 1. A 4 mm and adjacent 3 mm calculus in the upper left ureter causing moderate obstructive uropathy. 2. There is extensive perinephric edema/fluid that could represent pyelosinus backflow (tiny calycea l rupture with urine extravasation) or superimposed infection. The edema is more than expected for th e degree of obstruction. 3. Additional small nonobstructive calculi measuring up to 4 mm. 4. Mild sigmoid diverticulosis.
[2018-02-12] MEDS ORDERED: NALOXONE 0.4 MG/ML 1 ML VIAL IV PRN (21:11)
[2018-02-12] MEDS ORDERED: ONDANSETRON 4 MG/2 ML VIAL IVP PRN (21:11)
[2018-02-12] MEDS: SODIUM CHLORIDE 0.9% 1,000 ML IV SCH (21:32)
[2018-02-12] MEDS: HYDROmorphone 1 MG/ML 1 ML SYRINGE IVP PRN ×2 (21:32→23:52)
[2018-02-13 00:06] VITALS: BMI 22.8
[2018-02-13] MEDS: HYDROmorphone 1 MG/ML 1 ML SYRINGE IVP PRN ×2 (06:09→09:23)
[2018-02-13 07:52] LABS: Glucose,Whole Blood 85 mg/dL (75-99)
--- NOTE | 2018-02-13 08:09 | P.GSHP ---
History of Present Illness H&P Date: 02/13/18 57 yo female with left ureteral colic due to a 6 mm mid ureteral stone SHe has had previous stone manipulations[betrus] She is still in pain SHe is admitted for pain control and further management of the stone - Genitourinary (Female) Genitourinary: Reports as per HPI Past Medical History Past Medical History: No Reported History Additional Past Medical History / Comment(s): KIDNEY STONES. History of Any Multi-Drug Resistant Organisms: None Reported Past Surgical History: Appendectomy, Cholecystectomy, Hysterectomy, Orthopedic Surgery, Tonsillectomy Additional Past Surgical History / Comment(s): bilateral knee arthroscopies and open bilateral knee surgeries, L hip cyst removed., LEFT URETERAL CALCULUS- LITHOTRIPSY WITH STONE BASKETING AND STENT (05/30/16) Past Anesthesia/Blood Transfusion Reactions: No Reported Reaction Past Psychological History: Anxiety Additional Psychological History / Comment(s): . Smoking Status: Current every day smoker Past Alcohol Use History: None Reported Additional Past Alcohol Use History / Comment(s): Pt started smoking in 1979 and is less than a ppd smoker. Smoking for 37 years. Past Drug Use History: None Reported - Past Family History Mother Family Medical History: No Reported History Father Family Medical History: Coronary Artery Disease (CAD) Additional Family Medical History / Comment(s): Father is 72yrs old. Medications and Allergies Home Medications Medication Instructions Recorded Confirmed Type Estradiol [Estrace] 1 mg PO DAILY 05/28/16 12/11/16 History Sertraline [Zoloft] 50 mg PO DAILY 12/08/16 12/11/16 History Hydrocodone/Acetaminophen [[place] 1 - 2 each PO Q4HR PRN #20 tab 12/11/16 Rx 5-325] Allergies Allergy/AdvReac Type Severity Reaction Status Date / Time No Known Allergies Allergy Verified 12/08/16 10:21 Surgical - Exam Vital Signs Temp Pulse Resp BP Pulse Ox 97.5 F L 92 18 160/89 98 02/12/18 18:28 02/12/18 18:28 02/12/18 18:28 02/12/18 18:28 02/12/18 18:28 - General well developed, well nourished, moderate distress - Eyes PERRL - ENT no hearing loss - Neck no masses, trachea midline - Respiratory normal expansion, normal respiratory effort - Cardiovascular Rhythm: regular - Abdomen Abdomen: tender - Integumentary no rash, no growths - Neurologic normal coordination, normal sensation - Musculoskeletal normal posture - Psychiatric oriented to time, oriented to person, oriented to place, speech is normal, memory intact Results - Labs 02/12/18 18:48 02/12/18 18:48 Abnormal Lab Results - Last 24 Hours (Table) 02/12/18 02/12/18 02/12/18 Range/Units 18:48 18:48 20:10 WBC 10.7 H (3.8-10.6) k/uL Hct 47.2 H (34.0-46.0) % Neutrophils # 8.6 H (1.3-7.7) k/uL BUN 23 H (7-17) mg/dL Glucose 133 H (74-99) mg/dL Calcium 11.3 H (8.4-10.2) mg/dL Amylase 114 H (30-110) U/L Urine Blood Moderate H (Negative) Ur Leukocyte Esterase Trace H (Negative) Urine RBC 53 H (0-5) /hpf Urine WBC 7 H (0-5) /hpf Urine Bacteria Few H (None) /hpf Urine Mucus Few H (None) /hpf Microbiology - Last 24 Hours (Table) 02/12/18 20:10 Urine Culture - Preliminary Urine,Voided Diabetes panel 02/12/18 Range/Units 18:48 Sodium 138 (137-145) mmol/L Potassium 4.7 (3.5-5.1) mmol/L Chloride 105 (98-107) mmol/L Carbon Dioxide 22 (22-30) mmol/L BUN 23 H (7-17) mg/dL Creatinine 0.93 (0.52-1.04) mg/dL Glucose 133 H (74-99) mg/dL Calcium 11.3 H (8.4-10.2) mg/dL AST 36 (14-36) U/L ALT 30 (9-52) U/L Alkaline Phosphatase 102 (38-126) U/L Total Protein 7.9 (6.3-8.2) g/dL Albumin 4.8 (3.5-5.0) g/dL Calcium panel 02/12/18 Range/Units 18:48 Calcium 11.3 H (8.4-10.2) mg/dL Albumin 4.8 (3.5-5.0) g/dL Pituitary panel 02/12/18 Range/Units 18:48 Sodium 138 (137-145) mmol/L Potassium 4.7 (3.5-5.1) mmol/L Chloride 105 (98-107) mmol/L Carbon Dioxide 22 (22-30) mmol/L BUN 23 H (7-17) mg/dL Creatinine 0.93 (0.52-1.04) mg/dL Glucose 133 H (74-99) mg/dL Calcium 11.3 H (8.4-10.2) mg/dL Adrenal panel 02/12/18 Range/Units 18:48 Sodium 138 (137-145) mmol/L Potassium 4.7 (3.5-5.1) mmol/L Chloride 105 (98-107) mmol/L Carbon Dioxide 22 (22-30) mmol/L BUN 23 H (7-17) mg/dL Creatinine 0.93 (0.52-1.04) mg/dL Glucose 133 H (74-99) mg/dL Calcium 11.3 H (8.4-10.2) mg/dL Total Bilirubin 0.8 (0.2-1.3) mg/dL AST 36 (14-36) U/L ALT 30 (9-52) U/L Alkaline Phosphatase 102 (38-126) U/L Total Protein 7.9 (6.3-8.2) g/dL Albumin 4.8 (3.5-5.0) g/dL - Imaging CT scan - abdomen: report reviewed, image reviewed CT scan - chest: image reviewed CT scan - pelvis: report reviewed Assessment and Plan Assessment: Impression: Left ureteral stone with colic Plan": cysto left ureteroscopy and laser litho probable stent placement
[2018-02-13] MEDS ORDERED: ESTRADIOL 0.5 MG TAB PO SCH (09:00)
[2018-02-13] MEDS ORDERED: CARBAMIDE PEROXIDE 6.5% DROPS 15 ML BTL LEFT EAR SCH (09:00)
[2018-02-13] MEDS ORDERED: SERTRALINE 50 MG TAB PO SCH (09:00)
[2018-02-13] MEDS: SODIUM CHLORIDE 0.9% 1,000 ML IV SCH ×2 (09:14→17:30)
[2018-02-13] MEDS ORDERED: IV FLUID CONTINUATION 1,000 ML IV ONE (13:36)
[2018-02-13] MEDS ORDERED: ceFAZolin 1,000 MG/50 ML BAG (PMX) IVPB ONE (14:02)
[2018-02-13] MEDS ORDERED: fentaNYL (PF) 50 MCG/ML 2 ML AMP ONE (14:05)
[2018-02-13] MEDS ORDERED: LIDOCAINE 1% INJ 10MG/ML (20 ML MDV) ONE (14:05)
[2018-02-13] MEDS ORDERED: ONDANSETRON 4 MG/2 ML VIAL ONE (14:05)
[2018-02-13] MEDS ORDERED: MIDAZOLAM 2 MG/2 ML VIAL ONE (14:05)
[2018-02-13] MEDS ORDERED: PROPOFOL 10 MG/ML 20 ML VIAL IV ONE (14:05)
--- NOTE | 2018-02-13 14:52 | P.OP ---
Date of Procedure: 02/13/18 Preoperative Diagnosis: Left ureteral calculus with obstruction and colic Postoperative Diagnosis: Same Procedure(s) Performed: Cystoscopy, left ureteroscopy with laser lithotripsy, placement of 624 double-J catheter left Anesthesia: LEOBARDOA Surgeon: Pelon Chery Estimated Blood Loss (ml): 0 Pathology: other (Stone) Condition: stable Disposition: PACU Indications for Procedure: The patient is 57. She has a 5-6 mm proximal ureteral stone with colic. 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 She is given a general anesthetic. She's placed lithotomy position with sterile prep and drape. Cystoscopy with a Foroblique lens and 22-Slovenian sheath identifies a normal urethra. The bladder mucosa is unremarkable. The ureteral orifices are patulous. The left ureteral orifice is intubated with a 7-Slovenian mini ureteroscope and is easily passed up to the point of the stone. The stone is jagged and obstructing. With the 365 laser probe and 3 W of energy the stone was broken into tiny pieces and flushed out of the ureter. Due to the edema and the fact that she is leaving the country a double-J catheter was replaced. Through the ureteroscope and 035 wires passed up into the renal pelvis. Over the wires passed a 6 x 24 double-J catheter that coils in the renal pelvis and the bladder. The bladder strain of stones. Its position was stents position is good. The patient is awakened and returned recovery in good condition. Blood loss is minimal.
--- NOTE | 2018-02-13 14:54 | P.DS ---
Providers Date of admission: 02/12/18 21:11 Attending physician: Pelon Chery Primary care physician: Stated None Hospital Course: The patient was admitted to the hospital 02/12/2018 for an obstructing ureteral calculus. The patient's pain persisted through the night. She wishes something to be done both for the pain and the fact that she is leaving town relatively soon. She thus underwent ureteroscopy laser lithotripsy stone removal. A 624 stent was placed. The patient be discharged home. She'll follow-up in the office in 2 weeks for stent removal. Postoperative instructions were given. Activity can be returned to normal tomorrow. Condition is good. Patient Condition at Discharge: Serious Plan - Discharge Summary New Discharge Prescriptions: No Action Estradiol [Estrace] 1 mg PO DAILY Sertraline [Zoloft] 50 mg PO DAILY Discharge Medication List Estradiol [Estrace] 1 mg PO DAILY 05/28/16 [History] Sertraline [Zoloft] 50 mg PO DAILY 12/08/16 [History] Follow up Appointment(s)/Referral(s): None,Stated [Primary Care Provider] - 1-2 days Pelon Chery MD [STAFF PHYSICIAN] - 2 Weeks (for cysto w stent removal) Discharge Disposition: HOME SELF-CARE
[2018-02-13 15:04] VITALS: RESP 16; TEMP 96.9
[2018-02-13] MEDS ORDERED: HYDROmorphone 1 MG/ML 1 ML SYRINGE IVP ONE ×2 (15:10→15:20)
[2018-02-13 16:06] VITALS: BP 134/68; PULSE 72
[2018-02-13] MEDS ORDERED: ACETAMINOPHEN TAB 500 MG TAB PO STA (17:49)
--- NOTE | 2018-02-14 08:05 | FL ---
EXAMINATION TYPE: FL guidance operating room DATE OF EXAM: 02/13/2018 CLINICAL HISTORY: Left-sided cystoscopy with stent placement TECHNIQUE: Fluoroscopy. COMPARISON: None. FINDINGS/IMPRESSION: Fluoroscopic guidance was provided during procedure performed by Dr. Chery. A total of 5 seconds of fluoroscopic time was utilized during the procedure and 1 spot images was acqui red during a left-sided cystoscopy with stent placement.
== END 2018-02-13 19:44 | disposition home or self-care (01) ==
LOC: EC 18:20 → 4SSUR 21:11
PROVIDERS: ADMIT Urology; ATTEND Urology
DX: N13.2 Hydronephrosis with renal and ureteral calculous obstruction (principal); Z90.49 Acquired absence of other specified parts of digestive tract; F41.9 Anxiety disorder, unspecified; F17.210 Nicotine dependence, cigarettes, uncomplicated; Z82.49 Family history of ischemic heart disease and other diseases of the circulatory system; Z79.899 Other long term (current) drug therapy; K57.30 Diverticulosis of large intestine without perforation or abscess without bleeding; Z79.890 Hormone replacement therapy; Z87.442 Personal history of urinary calculi; Z90.710 Acquired absence of both cervix and uterus
CPT/HCPCS: 52356; 96376 ×2; 96374; 96375; 99285; 36415; 80053; 82150; 83690; 85025; 81001; 82365; 87086; 74018; 74176; G0378 ×2; C2625; C1769; J2250; J2405 ×2; J2001; J3010; J1885; J1170 ×2; J0690; J2704

== ENCOUNTER → 2019-07-10 | Outpatient (CLI) | payer OTHER ==
--- NOTE | 2019-07-10 09:22 | XR ---
EXAMINATION TYPE: XR abdomen 1V DATE OF EXAM: 07/10/2019 COMPARISON: NONE HISTORY: Left-sided kidney stone TECHNIQUE: One view abdominal series FINDINGS: The osseous structures are intact. The bowel gas pattern is nonspecific. The left paraspinal calcification is not seen on today's exam. There are 5 small calcifications in th e left hemipelvis which were not seen with certainty on the prior exam of 2018. Could represent tiny distal ureteral calculi. The diameter measures approximately 1 mm from the superior and most inferior . Lateral calcification measures 3 mm. Postcholecystectomy changes noted. Additional vascular calcifications in the inferior pelvis are seen . IMPRESSION: 1. Left paraspinal calcification is no longer seen but there are 5 small calcifications in the left h emipelvis. At least one of which could lie within the distal ureter. They all measure less than 5 mm in diameter.
== END | disposition home or self-care (01) ==
LOC: RADXRMAIN 08:56
PROVIDERS: ATTEND Urology
DX: N28.89 Other specified disorders of kidney and ureter (principal)
CPT/HCPCS: 74018

== ENCOUNTER → 2019-07-10 | Outpatient (CLI) | payer OTHER ==
[2019-07-10 12:37] LABS: Basophils % (A) 0 %; Eosinophils % (A) 0 %; HGB 15.2 gm/dL (11.4-16.0); Lymphocytes # (A) 1.4 k/uL (1.0-4.8); Lymphocytes % (A) 15 %; MCH 29.6 pg (25.0-35.0); MCHC 31.7 g/dL (31.0-37.0); MCV 93.6 fL (80.0-100.0); Monocytes # (A) 0.6 k/uL (0-1.0); Monocytes % (A) 6 %; Neutrophils # (A) 6.8 k/uL (1.3-7.7); Neutrophils % (A) 76 %; Platelet Count 352 k/uL (150-450); RBC 5.13 m/uL (3.80-5.40); RDW 12.8 % (11.5-15.5)
[2019-07-10 12:46] LABS: African American GFR (CKD) >90 (>60 ml/min/1.73 sqM); Anion Gap 9 mmol/L; Blood Urea Nitrogen 24 mg/dL (7-17); Calcium 9.7 mg/dL (8.4-10.2); Carbon Dioxide 23 mmol/L (22-30); Chloride 106 mmol/L (98-107); Glucose 93 mg/dL (74-99); Non-African American GFR(CKD) 79 (>60 ml/min/1.73 sqM); Potassium 4.7 mmol/L (3.5-5.1); Sodium 138 mmol/L (137-145)
== END | disposition home or self-care (01) ==
LOC: LABPAT 11:40
PROVIDERS: ATTEND Urology
DX: Z01.818 Encounter for other preprocedural examination (principal); N20.1 Calculus of ureter
CPT/HCPCS: 80048; 85025

== ENCOUNTER 2019-07-14 10:06 | Day surgery (SDC) | payer OTHER ==
[2019-07-12 12:49] VITALS: BMI 23.8
[~2019-07-14 10:06] MED LIST changes: +HYDROmorphone 0.5 MG/0.5 ML SYRINGE IVP PRN; -HYDROmorphone 1 MG/ML 1 ML SYRINGE IVP PRN; +LIDOCAINE 1% (10MG/ML) FOR IV START INTRADERMA PRN; -SCOPOLAMINE 1.5MG/72HR PATCH TRANSDERM ONE; -ceFAZolin 2 GM in SODIUM CHLORIDE 0.9% 100 ML IVPB ONE; +fentaNYL (PF) 50 MCG/ML 2 ML AMP IVP PRN
--- NOTE | 2019-07-14 10:19 | XR ---
EXAMINATION TYPE: XR KUB DATE OF EXAM: 07/14/2019 10:12 AM CLINICAL HISTORY: Kidney stones. TECHNIQUE: Two supine KUB images of the abdomen are obtained. COMPARISON: Abdominal x-ray and CT February 12, 2018 FINDINGS: Previously visualized 2 adjacent calculi measuring between 4 and 6 mm left proximal ureter near L3 vertebra not clearly seen on today's study. Tiny bilateral nonobstructing calculi on CT less well-seen on plain films. Persistent pelvic phleboliths greater on the left when comparing x-ray vers us CT. Cholecystectomy clips. Overall nonobstructive bowel gas pattern. Visualized osseous structures are in tact. IMPRESSION: Interval successful treatment of the 2 proximal left ureteral calculi.
--- NOTE | 2019-07-14 12:00 | P.GSHP ---
History of Present Illness H&P Date: 07/14/19 Chief Complaint: Left renal colic The patient is a 59 yo WF with a history of urolithiasis. She has recently experienced left renal colic. KUB x-ray shows multiple calcifications, left hemipelvis. She is presumed to have a left distal ureteral calculus and desires ureteroscopic removal of the calculus. She has more recently also experienced right sided discomfort. - Constitutional Constitutional: Reports chills - Gastrointestinal Gastrointestinal: Reports nausea, Reports vomiting - Genitourinary (Female) Genitourinary: Reports flank pain, Reports kidney stones, Denies hematuria Past Medical History Past Medical History: No Reported History Additional Past Medical History / Comment(s): KIDNEY STONES, migraine for last few days-better today, frequent nausea due to migraine, did have fever yesterday, not today History of Any Multi-Drug Resistant Organisms: None Reported Past Surgical History: Adenoidectomy, Appendectomy, Cholecystectomy, Hysterectomy, Orthopedic Surgery, Tonsillectomy Additional Past Surgical History / Comment(s): bilateral knee arthroscopies and open bilateral knee surgeries, L hip cyst removed., LEFT URETERAL CALCULUS- LITHOTRIPSY WITH STONE BASKETING AND STENT (05/30/16) Past Anesthesia/Blood Transfusion Reactions: No Reported Reaction Smoking Status: Current every day smoker - Past Family History Mother Family Medical History: No Reported History Father Family Medical History: Coronary Artery Disease (CAD) Additional Family Medical History / Comment(s): Father is 72yrs old. Medications and Allergies Home Medications Medication Instructions Recorded Confirmed Type Estradiol [Estrace] 1 mg PO DAILY 05/28/16 07/12/19 History Sertraline [Zoloft] 50 mg PO DAILY 12/08/16 07/12/19 History HYDROcodone/APAP 5-325MG [[place] 1 tab PO Q6HR PRN 07/12/19 07/12/19 History 5-325] Tamsulosin [Flomax] 0.4 mg PO HS 07/12/19 07/12/19 History Allergies Allergy/AdvReac Type Severity Reaction Status Date / Time No Known Allergies Allergy Verified 07/12/19 12:32 Surgical - Exam - General well developed, well nourished, moderate distress - Respiratory normal respiratory effort, clear to auscultation - Cardiovascular Rhythm: regular - Abdomen Abdomen: soft, tender (left-sided tenderness), no guarding, no rigid, no rebound, no distended - Psychiatric oriented to time, oriented to person, oriented to place, speech is normal, memory intact Results - Imaging Abdominal x-ray: report reviewed, image reviewed Assessment and Plan (1) Calculus of ureter Current Visit: No Status: Acute Code(s): N20.1 - CALCULUS OF URETER SNOMED Code(s): 06388592 Plan: Cystoscopy, bilateral retrograde pyelograms, ureteroscopy with laser lithotripsy and possible stone basketing, possible ureteral stent insertion. The procedure has been reviewed in detail with the patient, who understands risks to include anesthesia, ureteral injury, and infection. She hopes to avoid a stent but understands it may be required. The procedure will be performed by Dr. Chery.
[2019-07-14] MEDS ORDERED: SUCCINYLCHOLINE CHLORIDE 100 MG/5 ML SYR IV ONE (15:08)
[2019-07-14] MEDS ORDERED: PROPOFOL 10 MG/ML 20 ML VIAL IV ONE (15:08)
[2019-07-14] MEDS ORDERED: fentaNYL (PF) 50 MCG/ML 2 ML AMP ONE (15:08)
[2019-07-14] MEDS ORDERED: MIDAZOLAM 2 MG/2 ML VIAL ONE (15:08)
[2019-07-14] MEDS ORDERED: LIDOCAINE 1% INJ 10MG/ML (20 ML MDV) ONE (15:08)
[2019-07-14] MEDS ORDERED: IOPAMIDOL-370 50ML BTL MISCELLANE ONE (15:11)
--- NOTE | 2019-07-14 16:02 | P.OP ---
Date of Procedure: 07/14/19 Preoperative Diagnosis: Left ureteral stone bilateral flank pain Postoperative Diagnosis: Same, left ureteral stone normal right retrograde pyelogram Procedure(s) Performed: Cystoscopy, bilateral retrograde pyelogram, left ureteroscopy with laser lithotripsy Anesthesia: SHERI Surgeon: Pelon Chery Estimated Blood Loss (ml): 0 Pathology: other (Stone) Condition: stable Disposition: PACU Indications for Procedure: The patient is 59. She has a history of stones. She recently presented to with left-sided flank pain consistent with a previous stone. He set her up for a ureteroscopy based on a KUB. This morning she also has right flank pain. In ' absence I will do the procedure. Description of Procedure: The patient is brought to the operating suite. She is given a general endotracheal anesthesia. She's placed lithotomy position with sterile prep and drape. Cystoscopy Foroblique lens and 22-Marshallese sheath identifies normal urethra. The ureters normal the bladder mucosa is unremarkable. Within a cone- tipped catheter a left retrograde pyelogram and 4 mL of contrast administered. There is a filling defect consistent with a stone in the distal left ureter. The rest urine is unremarkable other than some mild hydronephrosis. A right retrograde pyelogram with 8 mL of contrast administered and the ureters of normal course and caliber without obstruction The 7-Marshallese mini ureteroscope was passed in the distal ureter up to the stone. With the 200 laser probe the stone was broken into very tiny fragments and flushed out of the ureter. I then pass a scope into the proximal ureter there is no other stones. I then review the area of obstruction and the edema is not enough to leave a stent. I removed the ureteroscope bladder strain the patient's awake and returned recovery room good condition. She'll be discharged home upon recovery. She will follow-up with next week
[2019-07-14 16:06] VITALS: TEMP 98
[2019-07-14 16:20] VITALS: RESP 16
--- NOTE | 2019-07-14 16:20 | FL ---
EXAMINATION TYPE: FL urography retrograde DATE OF EXAM: 07/14/2019 CLINICAL HISTORY: Left-sided kidney stones. TECHNIQUE: Fluoroscopy. COMPARISON: None. FINDINGS: Fluoroscopic guidance was provided during bilateral retrograde urogram with left-sided lit hotripsy procedure performed by Dr. Swanson. A total of 28 seconds of fluoroscopic time was utilized during the procedure and 0 spot images are saved to PACS. IMPRESSION: As Above.
[2019-07-14 17:00] VITALS: BP 155/99; PULSE 70
== END 2019-07-14 17:30 | disposition home or self-care (01) ==
LOC: OR 10:06
PROVIDERS: ATTEND Urology
DX: N20.1 Calculus of ureter (principal); G43.909 Migraine, unspecified, not intractable, without status migrainosus; F17.210 Nicotine dependence, cigarettes, uncomplicated; Z79.3 Long term (current) use of hormonal contraceptives; Z79.899 Other long term (current) drug therapy; Z87.442 Personal history of urinary calculi; Z90.710 Acquired absence of both cervix and uterus; Z90.49 Acquired absence of other specified parts of digestive tract; Z90.89 Acquired absence of other organs; Z98.890 Other specified postprocedural states; Z82.49 Family history of ischemic heart disease and other diseases of the circulatory system
CPT/HCPCS: 74018; 74420; 82365

== ENCOUNTER → 2020-09-11 | Outpatient (CLI) | payer OTHER ==
[2020-09-11 13:43] LABS: African American GFR (CKD) 81.7 (60.0-200.0); Albumin 4.6 g/dL (3.80-4.90); Albumin/Globulin Ratio 1.84 (1.60-3.17); BUN/Creat Ratio 18.89 Ratio (12.00-20.00); Calcium 9.4 mg/dL (8.7-10.3); Chol/HDL Ratio 3.71; Globulin 2.5 g/dL (1.6-3.3); LDL Cholesterol,Calculated 126.6 mg/dL (0.0-131.0); Non-African American GFR(CKD) 70.5 (60.0-200.0); Total Bilirubin 0.8 mg/dL (0.2-1.2); Total Protein 7.1 g/dL (6.2-8.2); VLDL Calculation 33.4 mg/dL (5.00-40.00)
== END | disposition home or self-care (01) ==
LOC: LABWHC1 06:58
PROVIDERS: ATTEND Internal Medicine Interventional Cardiology
DX: E78.2 Mixed hyperlipidemia (principal)
CPT/HCPCS: 36415; 80053; 80061

== ENCOUNTER → 2020-10-15 | Outpatient (CLI) | payer OTHER ==
[2020-10-15 16:06] LABS: Chol/HDL Ratio 3.59; LDL Cholesterol,Calculated 106.2 mg/dL (0.0-131.0); VLDL Calculation 25.8 mg/dL (5.00-40.00)
== END | disposition home or self-care (01) ==
LOC: LABWHC1 07:04
PROVIDERS: ATTEND Nurse Practitioner Adult Health
DX: E78.2 Mixed hyperlipidemia (principal)
CPT/HCPCS: 36415; 80061; 84450; 84460

== ENCOUNTER 2020-11-16 13:14 | Emergency (ER) | payer OTHER ==
[2020-11-16 13:23] VITALS: PULSE 65; RESP 18; TEMP 98
--- NOTE | 2020-11-16 14:05 | ED ---
General Adult HPI - General Chief complaint: Extremity Injury, Upper Stated complaint: rt elbow injury Time Seen by Provider: 11/16/20 13:29 Source: patient Mode of arrival: ambulatory Limitations: no limitations - History of Present Illness Initial comments: Dictation was produced using [email or web address] dictation software. please excuse any grammatical, word or spelling errors. Chief Complaint: 60-year-old female presents with right elbow History of Present Illness: Patient is 52-year-old female about a week ago patient struck her elbow on a chair. Today she struck it again to the same sensitive spot on the right lateral elbow. She noted that she had a acute appearing lump where she struck her elbow. She states that the area is tender and warm to the touch. The ROS documented in this emergency department record has been reviewed and confirmed by me. Those systems with pertinent positive or negative responses have been documented in the HPI. All other systems are other negative and/or noncontributory. PHYSICAL EXAM: General Impression: Alert and oriented x3, not in acute distress HEENT: Normocephalic atraumatic, extra-ocular movements intact, pupils equal and reactive to light bilaterally, mucous membranes moist. Cardiovascular: Heart regular rate and rhythm Chest: Able to complete full sentences, no retractions, no tachypnea Abdomen: abdomen soft, non-tender, non-distended, no organomegaly Musculoskeletal: Pulses present and equal in all extremities, no peripheral edema Right elbow: Bursa over the olecranon process Motor: no focal deficits noted Neurological: CN II-XII grossly intact, no focal motor or sensory deficits noted Skin: Intact with no visualized rashes Psych: Normal affect and mood ED course: 60-year-old male presents with olecranon bursitis. History of present illness suggest that this is likely traumatic and not an infected bursitis. Vital signs upon arrival are within acceptable limits. I will x-ray shows posterior soft tissue swelling consistent with olecranon bursitis. No fracture. Patient discharge. Advised to follow-up with primary care doctor. Patient's symptoms likely self-limited. Should improve over time. Patient told to be careful not to further traumatize that area. - Related Data Home Medications Medication Instructions Recorded Confirmed estradioL [Estrace] 1 mg PO DAILY 05/28/16 07/12/19 Sertraline [Zoloft] 50 mg PO DAILY 12/08/16 07/12/19 HYDROcodone/APAP 5-325MG [Raeford 1 tab PO Q6HR PRN 07/12/19 07/12/19 5-325] Tamsulosin [Flomax] 0.4 mg PO HS 07/12/19 07/12/19 Previous Rx's Medication Instructions Recorded HYDROcodone/APAP 5-325MG [Raeford 1 tab PO Q4HR PRN #10 tab 07/14/19 5-325] Allergies Allergy/AdvReac Type Severity Reaction Status Date / Time No Known Allergies Allergy Verified 11/16/20 13:20 Review of Systems ROS Statement: Those systems with pertinent positive or pertinent negative responses have been documented in the HPI. ROS Other: All systems not noted in ROS Statement are negative. Past Medical History Past Medical History: Hypertension Additional Past Medical History / Comment(s): KIDNEY STONES,, nausea, migraine, History of Any Multi-Drug Resistant Organisms: None Reported Past Surgical History: Adenoidectomy, Appendectomy, Cholecystectomy, Hysterectomy, Orthopedic Surgery, Tonsillectomy Additional Past Surgical History / Comment(s): bilateral knee arthroscopies and open bilateral knee surgeries, L hip cyst removed., LEFT URETERAL CALCULUS- LITHOTRIPSY WITH STONE BASKETING AND STENT (05/30/16) Past Anesthesia/Blood Transfusion Reactions: No Reported Reaction Past Psychological History: Anxiety Smoking Status: Current every day smoker Past Alcohol Use History: Occasional Past Drug Use History: None Reported - Past Family History Mother Family Medical History: No Reported History Father Family Medical History: Coronary Artery Disease (CAD) Additional Family Medical History / Comment(s): Father is 72yrs old. General Exam Limitations: no limitations Course Vital Signs 11/16/20 13:20 Temperature 98.0 F Pulse Rate 65 Respiratory 18 Rate O2 Sat by Pulse 96 Oximetry Disposition Clinical Impression: Bursitis Disposition: HOME SELF-CARE Condition: Good Instructions (If sedation given, give patient instructions): Elbow Bursitis (ED) Is patient prescribed a controlled substance at d/c from ED?: No Referrals: Alberto Schaefer MD [Primary Care Provider] - 1-2 days
--- NOTE | 2020-11-16 14:36 | XR ---
EXAMINATION TYPE: XR elbow complete RT DATE OF EXAM: 11/16/2020 COMPARISON: NONE HISTORY: Fall. Pain. TECHNIQUE: 3 views FINDINGS: There is soft tissue swelling over the olecranon process of the ulna. I see no fracture nor dislocation. Joint spaces are normal. IMPRESSION: Posterior soft tissue swelling consistent with olecranon bursitis or hematoma. No fractur e seen.
== END 2020-11-16 15:16 | disposition home or self-care (01) ==
LOC: EC 13:14
DX: M70.21 Olecranon bursitis, right elbow (principal); I10 Essential (primary) hypertension; F17.200 Nicotine dependence, unspecified, uncomplicated; Z87.442 Personal history of urinary calculi; G43.909 Migraine, unspecified, not intractable, without status migrainosus; F41.9 Anxiety disorder, unspecified
CPT/HCPCS: 99283

== ENCOUNTER → 2021-02-21 | Outpatient (CLI) | payer OTHER ==
--- NOTE | 2021-02-21 14:40 | BD ---
EXAMINATION TYPE: Axial Bone Density DATE OF EXAM: 02/21/2021 COMPARISON: NONE CLINICAL HISTORY: Height: 62.7 IN Weight: 137 LBS FRAX RISK QUESTIONS: Secondary Osteoporosis: 3. Menopause before 45: TOTAL HYST AGE 34 Current Tobacco Use: YES RISK FACTORS HISTORY OF: Active: YES Diet low in dairy products/other sources of calcium: YES Postmenopausal woman: TOTAL HYST AGE 34 Take estrogen and/or progesterone medications: YES How long: SINCE AGE 34 MEDICATIONS: Additional Medications: ESTRADIAL, BLOOD PRESSURE MEDS, ZOLOFT EXAM MEASUREMENTS: Bone mineral densitometry was performed using the [employer] System. Bone mineral density as measured about the Lumbar spine is: ----- L1-L4(G/cm2): 1.133 T Score Values are as follows: ----- L2: -0.7 ----- L3: 0.1 ----- L4: -0.9 ----- L1-L4: -0.4 Bone mineral density BASELINE Bone mineral density about the R hip (g/cm2): 0.811 Bone mineral density about the L hip (g/cm2): 0.840 T Score values are as follows: -----R Neck: -1.6 -----L Neck: -1.4 -----R Total: -1.2 -----L Total: -1.0 Bone mineral density BASELINE IMPRESSION: Osteopenia (T Score between -2.5 and -1). There is slightly increased risk of fracture and the patient may be considered for treatment. Re-Screen 2-5 years. NOTE: T-SCORE=SD OF THE YOUNG ADULT MEAN.
== END | disposition home or self-care (01) ==
LOC: RADBDWWP 07:44
PROVIDERS: ATTEND Obstetrics & Gynecology
DX: M85.89 Other specified disorders of bone density and structure, multiple sites (principal); Z78.0 Asymptomatic menopausal state
CPT/HCPCS: 77080

== ENCOUNTER → 2022-03-24 | Outpatient (CLI) | payer BC ==
[2022-03-24 14:50] VITALS: BP 138/88; PULSE 74; RESP 17; TEMP 97.7
--- NOTE | 2022-03-24 17:00 | P.HPOB ---
History of Present Illness H&P Date: 03/24/22 Chief Complaint: The patient is here for her routine gynecologic exam. This is a 62-year-old with an LMP of 1993. The patient is here to establish with this office. It has been about 2 years since her last pelvic exam. She previously saw Dr. Turpin who has since retired. She had been on in ERT since her hysterectomy in 1993. She was taking estradiol 1 mg daily. She also took sertraline 50 mg daily for "nerves" and anxiety. She states these were prescribed by Dr. Turpin but she ran out of these prescriptions in January 2022. Since that time she has had significant hot flashes as well as being short tempered and inpatient. She also has noticed some skin changes including dryness of the skin and bruising as well as acne. She would like to go back on these medications. She is otherwise without complaints. Review of Systems The patient has gained 20 pounds over the last year. She does not know why she has gained so much weight. She denies respiratory, cardiac, or G.I. problems. Past Medical History Past Medical History: Hyperlipidemia, Hypertension Additional Past Medical History / Comment(s): KIDNEY STONES, migraine. 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 History of Any Multi-Drug Resistant Organisms: None Reported Past Surgical History: Adenoidectomy, Appendectomy, Breast Surgery, Chol ecystectomy, Hysterectomy, Orthopedic Surgery, Tonsillectomy Additional Past Surgical History / Comment(s): ROMULO/BSO 1993. BL knee arthroscopies and open bilateral knee surgeries, L hip cyst removed., LEFT URETERAL CALCULUS- LITHOTRIPSY WITH STONE BASKETING AND STENT (05/30/16). Bilateral breast implants. Past Anesthesia/Blood Transfusion Reactions: No Reported Reaction Past Psychological History: Anxiety (She denies any current depression.) Additional Psychological History / Comment(s): . Smoking Status: Current every day smoker (6 cigarettes per day) Past Alcohol Use History: Occasional (About 8 per year) Additional Past Alcohol Use History / Comment(s): Pt started smoking in 1979 and is less than couple cigs/day smoker Past Drug Use History: None Reported Additional History: She has been since 2012 and this is her second marriage. 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 - Past Family History Mother Family Medical History: No Reported History Father Family Medical History: Coronary Artery Disease (CAD), Myocardial Infarction (IN) Medications and Allergies Home Medications Medication Instructions Recorded Confirmed Type Atorvastatin [Lipitor] 20 mg PO DAILY 03/24/22 03/24/22 History Metoprolol Tartrate 25 mg PO DAILY 03/24/22 03/24/22 History amLODIPine [Norvasc] 2.5 mg PO DAILY 03/24/22 03/24/22 History Allergies Allergy/AdvReac Type Severity Reaction Status Date / Time No Known Allergies Allergy Verified 03/24/22 14:44 Exam Vital Signs Temp Pulse Resp BP Pulse Ox 03/24/22 14:47 97.7 F 74 17 138/88 97 Intake and Output 03/24/22 03/24/22 03/24/22 06:59 14:59 22:59 Other: Weight 64.864 kg Height 5 feet 2 inches, weight 143 pounds, BMI 26.2. This is a well-developed well-nourished white female who is alert and oriented times 3 in no acute distress. HEENT: Within normal limits. NECK: Supple without mass or thyromegaly. CHEST AND LUNGS: Clear to auscultation. HEART: Regular rate and rhythm. BREASTS: Are without mass or discharge. Breasts are consistent with bilateral implants. AXILLARY EXAM: Negative for adenopathy. BACK: Negative for CVA tenderness. ABDOMEN: Soft, nontender, without palpable masses. PELVIC EXAM: External genitalia appears normal with mild atrophy. Vagina appears normal with mild atrophy. There is a grade 1 cystocele and grade 1 rectocele which are considered within normal limits for her age. Bimanual examination is negative for mass or tenderness. RECTAL EXAM: Rectovaginal exam is negative for mass or tenderness and is negative for occult blood. EXTREMITIES: Nontender. IMPRESSION: 1. 62-year-old menopausal female status post ROMULO/BSO for benign reasons, with small grade 1 cystocele and small grade 1 rectocele. 2. History of postmenopausal ERT use since her ROMULO/BSO in 1993. Significant vasomotor symptoms after her prescription ran out approximately 2 months ago. 3. History of anxiety for which she has used sertraline. Increased symptoms since her prescription ran out 2 months ago. PLAN: 1. Pap smears have been discontinued. 2. Self breast awareness was discussed with the patient. We have also discussed symptoms associated with inflammatory breast cancer. 3. Screening mammogram was done on 04/29/2021 and was benign. 4. We have had a long discussion regarding ERT. We have discussed the possible increased risk for stroke and blood clots with ERT. Since she considers her symptoms severe after discontinuing the ERT, I think it is reasonable to restart ERT, but I have recommended that she try to wean off of ERT because of the risks. She will be restarted on estradiol 0.5 mg daily. I have recommended that she try to wean down, and possibly off, from this dose during the upcoming year to find the lowest effective dose. She should try to eventually wean off of ERT. 5. I have agreed to prescribe the sertraline which she has been taking for her anxiety. This prescription will be for sertraline 50 mg by mouth daily since this is the dose she has benign. She has strongly her empty pill bottles. I have recommended that she speak with her PCP regarding this medication and she should get future prescriptions from her PCP. She will be given a 3 month supply with 1 refill. The electronic prescriptions will be sent to [facility] pharmacy on . 6. She has received the [employer] Covid vaccination. I have recommended that she get a booster. She states she will look into this. 7. I have recommended screening colonoscopy based on her age. She will discuss this with her PCP as well as colorectal cancer screening options. 8. We have discussed the small cystocele and small rectocele. At this time I do not feel that these are causing any significant problems for her. This will be followed conservatively. 9. She was advised to return in one year for her annual well woman exam and as needed.
== END ==
LOC: WWCWWP 14:39
PROVIDERS: ATTEND Obstetrics & Gynecology
DX: Z90.710 Acquired absence of both cervix and uterus (principal); Z78.0 Asymptomatic menopausal state; F41.9 Anxiety disorder, unspecified; F17.200 Nicotine dependence, unspecified, uncomplicated

== ENCOUNTER → 2022-04-30 | Outpatient (CLI) | payer BC ==
--- NOTE | 2022-05-01 08:47 | MM ---
Reason for Exam: Screening (asymptomatic). Last screening mammogram was performed 12 month(s) ago. Patient History: Menarche at age 15. First Full-Term at age 28. Left ovary removed at age 33. Right ovary removed at age 33. Hysterectomy at age 33. Postmenopausal. Patient has history of breast feeding. Currently using Estrogen, beginning at age 33 for 28 years. 01/28/2012, Benign Core Biopsy on the right side. 01/28/2012, Benign Cyst Aspiration on the right side. 09/25/2004, Cyst Aspiration on the Right side. 1986, Bilateral Implants. Risk Values: Fabienne 5 year model risk: 1.9%. NCI Lifetime model risk: 9.5%. Prior Study Comparison: 05/06/2007 Bilateral Diagnostic Mammogram, [facility]. 07/02/2011 Bilateral Diagnostic Mammogram, [facility]. 04/29/2021 Bilateral Screening Mammogram, [facility]. Tissue Density: The breast tissue is heterogeneously dense. This may lower the sensitivity of mammography. Findings: Analyzed By CAD. There is no suspicious group of microcalcifications or new suspicious mass in either breast. Bilateral prepectoral saline implants. Chronic nodularity within both breasts. Overall Assessment: Benign, BI-RAD 2 Management: Screening Mammogram of both breasts in 1 year. A clinical breast exam by your physician is recommended on an annual basis and results should be correlated with mammographic findings. Electronically signed and approved by: Red Collier D.O.
== END | disposition home or self-care (01) ==
LOC: RADMAMWWP 07:23
PROVIDERS: ATTEND Obstetrics & Gynecology
DX: Z12.31 Encounter for screening mammogram for malignant neoplasm of breast (principal); Z78.0 Asymptomatic menopausal state; Z98.82 Breast implant status; Z98.890 Other specified postprocedural states
CPT/HCPCS: 77067

== ENCOUNTER 2023-04-07 17:53 | Emergency (ER) | payer BC ==
[2023-04-07 18:14] VITALS: BP 124/74; PULSE 66; RESP 18; TEMP 97.7
--- NOTE | 2023-04-07 18:25 | ED ---
Dizziness HPI - General Source: patient Mode of arrival: wheelchair Limitations: no limitations <Gilberto Birmingham - Last Filed: 04/07/23 18:26> <Stephen Cisneros - Last Filed: 04/07/23 22:39> - General Chief Complaint: Syncope Stated Complaint: syncope-Finger injury Time Seen by Provider: 04/07/23 18:18 - History of Present Illness Initial Comments: 63-year-old female presenting to the EDwith a chief complaint of foreign body in right second finger. Per patient, the hook of a hair extension tool popped out from the wooden hilt. Patient reports she was trying to insert this back into the wooden portion on this ended up stabbing her right second finger. Tetanus status unknown. Patient reports that she tried to pull this out she had a syncopal episode. Patent here with her hairdresser. She reports during this syncopal episode did not fall out of the chair. (Gilebrto Birmingham) 63-year-old female presenting with chief complaint of foreign body to the right index finger. Patient states that she was using a elyssa hook met for hair when the sharp portion broke off of the wooden portion, loss she was trying to replace this piece onto the wooden portion it punctured her right index finger. She does not know her last tetanus was. While the patient was trying to remove this she did have a syncopal episode, no head injury. She has returned to her baseline. (Stephen Cisneros) - Related Data Home Medications Medication Instructions Recorded Confirmed Atorvastatin [Lipitor] 20 mg PO DAILY 03/24/22 03/24/22 Metoprolol Tartrate 25 mg PO DAILY 03/24/22 03/24/22 amLODIPine [Norvasc] 2.5 mg PO DAILY 03/24/22 03/24/22 Previous Rx's Medication Instructions Recorded Sertraline [Zoloft] 50 mg PO DAILY #90 tab 03/24/22 estradioL [Estrace] 0.5 mg PO DAILY #90 tablet 03/24/22 Cephalexin [Keflex] 500 mg PO Q6HR 5 Days #20 cap 04/07/23 Allergies Allergy/AdvReac Type Severity Reaction Status Date / Time No Known Allergies Allergy Verified 04/07/23 18:03 Review of Systems ROS Other: All systems not noted in ROS Statement are negative. <Gilberto Birmingham - Last Filed: 04/07/23 18:26> ROS Other: All systems not noted in ROS Statement are negative. <Stephen Cisneros - Last Filed: 04/07/23 22:39> ROS Statement: Those systems with pertinent positive or pertinent negative responses have been documented in the HPI. Past Medical History Past Medical History: Hyperlipidemia, Hypertension Additional Past Medical History / Comment(s): KIDNEY STONES, migraine. 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 History of Any Multi-Drug Resistant Organisms: None Reported Past Surgical History: Adenoidectomy, Appendectomy, Breast Surgery, Cholecystectomy, Hysterectomy, Orthopedic Surgery, Tonsillectomy Additional Past Surgical History / Comment(s): ROMULO/BSO 1993. BL knee arthroscopies and open bilateral knee surgeries, L hip cyst removed., LEFT URETERAL CALCULUS- LITHOTRIPSY WITH STONE BASKETING AND STENT (05/30/16). Bilateral breast implants. Past Anesthesia/Blood Transfusion Reactions: No Reported Reaction Past Psychological History: Anxiety Smoking Status: Current every day smoker Past Alcohol Use History: Occasional Past Drug Use History: None Reported - Past Family History Mother Family Medical History: No Reported History Father Family Medical History: Coronary Artery Disease (CAD), Myocardial Infarction ([place]) Additional Family Medical History / Comment(s): Father is 72yrs old. <Gilberto Birmingham - Last Filed: 04/07/23 18:26> General Exam Limitations: no limitations <Gilberto Birmingham - Last Filed: 04/07/23 18:26> Limitations: no limitations General appearance: alert, in no apparent distress Head exam: Present: atraumatic, normocephalic, normal inspection Eye exam: Present: normal appearance, EOMI Neck exam: Present: normal inspection Respiratory exam: Absent: respiratory distress Cardiovascular Exam: Present: regular rate Neurological exam: Present: alert, oriented X3 Psychiatric exam: Present: normal affect, normal mood Skin exam: Present: other (Patient has the end of a hair elyssa hook in the right index finger) <Stephen Cisneros - Last Filed: 04/07/23 22:39> - General Exam Comments Initial Comments: Visual Physical Exam Vital signs reviewed General: Well-appearing, nontoxic, no acute distress. Head: Normocephalic, atraumatic Eyes: PERRLA, EOMI ENT: Airway patent Chest: Nonlabored breathing Skin: No visual rash, normal skin tone Neuro: Alert and oriented 3 Musculoskeletal: right second finger shows foreign object. (Gilberto Birmingham) Course Vital Signs 04/07/23 17:56 Temperature 97.7 F Pulse Rate 66 Respiratory 18 Rate Blood Pressure 124/74 O2 Sat by Pulse 98 Oximetry Procedures - Forgein Body Removal Soft Tissue Consent Obtained: verbal consent Site: hand Anesthetic Used: lidocaine 1%, without epi Foreign Body Suspected: Metal Foreign Body Removed: yes Foreign Body Removal Technique: Instrumentation Patient Tolerated Procedure: well - Laceration Laceration #1 Consent Obtained: verbal consent Indication: laceration Site: hand Size (cm): 1 Description: linear Depth: simple, single layer Anesthetic Used: lidocaine 1%, without epi Pre-repair: wound explored, irrigated extensively Type of Sutures: nylon Size of Sutures: 4-0 Number of Sutures: 2 Technique: simple, interrupted Patient Tolerated Procedure: well <Stephen Cisneros - Last Filed: 04/07/23 22:39> Medical Decision Making <Gilberto Birmingham - Last Filed: 04/07/23 18:26> <Stephen Cisneros - Last Filed: 04/07/23 22:39> - Medical Decision Making Quicknote portion performed. Signed Gilberto Birmingham PA-C (Gilberto Birmingham) Was pt. sent in by a medical professional or institution ([facility], [facility]SO[facility]IN[facility], urgent care, hospital, or group home...) When possible be specific @ -No Did you speak to anyone other than the patient for history (EMS, parent, family, police, friend...)? What history was obtained from this source @ -No Did you review nursing and triage notes (agree or disagree)? Why? @ -I reviewed and agree with nursing and triage notes Were old charts reviewed (outside hosp., previous admission, EMS record, old EKG, old radiological studies, urgent care reports/EKG's, group home records)? Report findings @ -No old charts were reviewed Differential Diagnosis (chest pain, altered mental status, abdominal pain women, abdominal pain men, vaginal bleeding, weakness, fever, dyspnea, syncope, headache, dizziness, GI bleed, back pain, seizure, CVA, palpatations, mental health, musculoskeletal)? @ -not applicable EKG interpreted by me (3pts min.). @ -As above X-rays interpreted by me (1pt min.). @ -X-ray shows foreign body with no osseous involvement CT interpreted by me (1pt min.). @ -None done U/S interpreted by me (1pt. min.). @ -None done What testing was considered but not performed or refused? (CT, X-rays, U/S, labs)? Why? @ -None What meds were considered but not given or refused? Why? @ -None Did you discuss the management of the patient with other professionals (professionals i.e. , PA, OUTSOLE PARAFFINER, lab, RT, psych nurse, social media assistant, mechanical engineering technician, teacher, community service officer coordinator, residential case manager)? Give summary @ -No Was smoking cessation discussed for >3mins.? @ -No Was critical care preformed (if so, how long)? @ -No Were there social determinants of health that impacted care today? How? (Homelessness, low income, unemployed, alcoholism, drug addiction, transportation, low edu. Level, literacy, decrease access to med. care, senior living, rehab)? @ -No Was there de-escalation of care discussed even if they declined (Discuss DNR or withdrawal of care, Hospice)? DNR status @ -No What co-morbidities impacted this encounter? (DM, HTN, Smoking, COPD, CAD, Cancer, CVA, ARF, Chemo, Hep., AIDS, mental health diagnosis, sleep apnea, morbid obesity)? @ -None Was patient admitted / discharged? Hospital course, mention meds given and route, prescriptions, significant lab abnormalities, going to OR and other pert inent info. @ -63-year-old female presenting with chief complaint of a hair elyssa hook puncture to the right index finger. Her tetanus is updated today. X-ray shows no osseous involvement. The finger is anesthetized with 1% lidocaine and the hook is removed. 2 sutures are then applied. Patient is started on Keflex. Educated on wound care and signs of infection. Follow-up with PCP. Report back to ER with any new or worsening symptoms. Discussed return parameters and answered all questions. Patient conveyed verbal understanding and agreed to the plan. I discussed this case in detail with my attending Dr. Dumont Undiagnosed new problem with uncertain prognosis? @ -No Drug Therapy requiring intensive monitoring for toxicity (Heparin, Nitro, Insulin, Cardizem)? @ -No Were any procedures done? @ -yes soft tissue foreign body removal and laceration repair Diagnosis/symptom? @ -Soft tissue foreign body removal Acute, or Chronic, or Acute on Chronic? @ -Acute Uncomplicated (without systemic symptoms) or Complicated (systemic symptoms)? @ -Uncomplicated Side effects of treatment? @ -No Exacerbation, Progression, or Severe Exacerbation? @ -No Poses a threat to life or bodily function? How? (Chest pain, [place], [place], pneumonia, PE, COPD, DKA, ARF, appy, cholecystitis, CVA, Diverticulitis, Homicidal, Suicidal, threat to staff... and all critical care pts) @ -No (Stephen Cisneros) Disposition <Gilberto Birmingham - Last Filed: 04/07/23 18:26> Is patient prescribed a controlled substance at d/c from ED?: No Time of Disposition: 20:26 <Stephen Cisneros - Last Filed: 04/07/23 22:39> Clinical Impression: Soft tissues foreign body Disposition: HOME SELF-CARE Condition: Good Instructions (If sedation given, give patient instructions): Care For Your Stitches (ED), Soft Tissue Foreign Body (ED) Additional Instructions: Follow-up with PCP. Report back to ER with any new or worsening symptoms. Keep the wound clean and dry and covered. Wash regularly with soap and water. Monitor for signs of infection, including but not limited to redness, swelling, warmth, tenderness, discharge. Sutures may be removed in 10-14 days. Prescriptions: Cephalexin [Keflex] 500 mg PO Q6HR 5 Days #20 cap Referrals: Alberto Schaefer [Primary Care Provider] - 1-2 days
[2023-04-07] MEDS ORDERED: DIPH,PERTUS(ACELL)TETVAC-LF 0.5 ML VIAL IM ONE (18:26)
--- NOTE | 2023-04-07 18:29 | XR ---
EXAMINATION TYPE: XR hand complete RT DATE OF EXAM: 04/07/2023 COMPARISON: None HISTORY: Foreign body TECHNIQUE: 3 view right hand FINDINGS: There is metallic type look within the subcutaneous tissues of the right index finger. No o sseous involvement is identified. Joint spaces are preserved. No acute fractures are evident. Remaining soft tissues are normal. IMPRESSION: 1. Radiopaque foreign body in the distal index finger right hand no osseous involvement is evident
[2023-04-07] MEDS ORDERED: LIDOCAINE 1% INJ 10MG/ML (20 ML MDV) SQ ONE (19:08)
[2023-04-07] MEDS ORDERED: CEPHALEXIN 500MG STARTER PACK 4 CAP BTL PO STA (20:27)
== END 2023-04-07 20:46 | disposition home or self-care (01) ==
LOC: EC 17:53
DX: S61.220A Laceration with foreign body of right index finger without damage to nail, initial encounter (principal); E78.5 Hyperlipidemia, unspecified; I10 Essential (primary) hypertension; F17.200 Nicotine dependence, unspecified, uncomplicated; Z86.59 Personal history of other mental and behavioral disorders; Z79.899 Other long term (current) drug therapy; Z23 Encounter for immunization; W45.8XXA Other foreign body or object entering through skin, initial encounter
CPT/HCPCS: 73130; 90715; 99284; 90471; 12041; J2001

== ENCOUNTER → 2023-06-30 | Outpatient (CLI) | payer BC ==
[2023-06-30 08:39] VITALS: BP 121/81; PULSE 65; RESP 17; TEMP 97.9
--- NOTE | 2023-06-30 08:50 | P.HPOB ---
History of Present Illness H&P Date: 06/30/23 Chief Complaint: The patient is here for her routine gynecologic exam and ma mmogram. This is a 63-year-old with an LMP of 1993. She is status post ROMULO/BSO for benign reasons. She is on estradiol 0.5 mg by mouth daily. This was decreased from 1 mg daily following her last annual exam. She states she has had some irregular hot flashes and this has been more than when she was on 1 mg daily. She states they are tolerable. She is otherwise without gynecologic complaints. Review of Systems The patient has lost 5 pounds over the last year. She states she has been more tired and thinks this may be related to her job and blood work she does caring for her 85-year-old father who lives with her. She denies respiratory, cardiac, or G.I. problems. Past Medical History Past Medical History: Hyperlipidemia, Hypertension Additional Past Medical History / Comment(s): KIDNEY STONES, migraine. 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 History of Any Multi-Drug Resistant Organisms: None Reported Past Surgical History: Adenoidectomy, Appendectomy, Breast Surgery, Cholecystectomy, Hysterectomy, Orthopedic Surgery, Tonsillectomy Additional Past Surgical History / Comment(s): ROMULO/BSO 1993. BL knee arthroscopies and open bilateral knee surgeries, L hip cyst removed., LEFT URETERAL CALCULUS- LITHOTRIPSY WITH STONE BASKETING AND STENT (05/30/16). Bilateral breast implants. Past Anesthesia/Blood Transfusion Reactions: No Reported Reaction Past Psychological History: Anxiety Additional Psychological History / Comment(s): . Smoking Status: Current every day smoker (Smokes about 5 cigarettes per day.) Past Alcohol Use History: Occasional Additional Past Alcohol Use History / Comment(s): Pt started smoking in 1979 and is less than couple cigs/day smoker Past Drug Use History: None Reported Additional History: She has been since 2012 and this is her second marriage. She is sexually active. She is now working at the [employer] doing [employer]. Her elderly father with Parkinson's disease lives with her. - Past Family History Mother Family Medical History: No Reported History Father Family Medical History: Coronary Artery Disease (CAD), Myocardial Infarction ([place]), Neurologic Disorder Additional Family Medical History / Comment(s): Parkinson's disease. Medications and Allergies Home Medications Medication Instructions Recorded Confirmed Type Atorvastatin [Lipitor] 20 mg PO DAILY 03/24/22 06/30/23 History Metoprolol Tartrate 25 mg PO DAILY 03/24/22 06/30/23 History Sertraline [Zoloft] 50 mg PO DAILY #90 tab 03/24/22 06/30/23 Rx amLODIPine [Norvasc] 2.5 mg PO DAILY 03/24/22 06/30/23 History estradioL [Estrace] 0.5 mg PO DAILY #90 tablet 03/24/22 06/30/23 Rx Allergies Allergy/AdvReac Type Severity Reaction Status Date / Time No Known Allergies Allergy Verified 06/30/23 07:58 Exam Vital Signs Temp Pulse Resp BP Pulse Ox 06/30/23 07:59 97.9 F 65 17 121/81 97 Intake and Output 06/29/23 06/30/23 06/30/23 22:59 06:59 14:59 Other: Weight 62.596 kg Height 5 foot 1 inch, weight 138 pounds, BMI 26.1. This is a well-developed well-nourished white female who is alert and oriented times 3 in no acute distress. HEENT: Within normal limits. NECK: Supple without mass or thyromegaly. CHEST AND LUNGS: Clear to auscultation. HEART: Regular rate and rhythm. BREASTS: Are without mass or discharge. Breasts are consistent with bilateral implants. AXILLARY EXAM: Negative for adenopathy. BACK: Negative for CVA tenderness. ABDOMEN: Soft, nontender, without palpable masses. PELVIC EXAM: External genitalia appears normal with mild atrophy. Vagina appears normal with mild atrophy. There is no evidence of prolapse. Bimanual examination is negative for mass or tenderness. RECTAL EXAM: Rectovaginal exam is negative for mass or tenderness and is negative for occult blood. EXTREMITIES: Nontender. IMPRESSION: 1. 63-year-old menopausal female status post ROMULO/BSO for benign reasons, with normal gynecologic exam. 2. Doing well on low-dose ERT with mild intermittent vasomotor symptoms. PLAN: 1. Pap smears have been discontinued. 2. Self breast awareness was discussed with the patient. We have also discussed symptoms associated with inflammatory breast cancer. 3. Screening mammogram was done today. 4. Osteoporosis prevention was discussed. I have stressed the importance of adequate calcium, vitamin D and regular exercise. Recommended amounts of calcium and vitamin D were also discussed. I have recommended bone density testing since this has not been recently done. The order slip was given to the patient for this. 5. We have had a long discussion regarding ERT. We have discussed possible risks including increased risk for blood clots and stroke. We have also discussed how smoking can increase those risks and I have recommended that she try to quit smoking. We have also discussed the importance of trying to wean off of ERT. In the upcoming year she will try to wean down on the ERT dose. This can be a gradual decrease. I have suggested that she try to skip every third day and if this is tolerated to continue to decrease the frequency of the ERT. The electronic prescription for estradiol 0.5 mg daily will be sent to [facility] pharmacy on . 6. Colorectal cancer screening was discussed. She has never had a colonoscopy. She will discuss all rectal cancer screening options with her PCP. 7. She was advised to return in one year for her annual well woman exam.
--- NOTE | 2023-07-01 10:17 | MM ---
Reason for Exam: Hx of breast augmentation, asymptomatic. Last mammogram was performed 1 year(s) and 2 month(s) ago. Patient History: Menarche at age 15. First Full-Term at age 28. Left ovary removed at age 33. Right ovary removed at age 33. Hysterectomy at age 33. Postmenopausal. Patient has history of breast feeding. Currently using Estrogen, beginning at age 33 for 28 years. 01/28/2012, Benign Core Biopsy on the right side. 01/28/2012, Benign Cyst Aspiration on the right side. 09/25/2004, Cyst Aspiration on the Right side. 1986, Bilateral Implants. Risk Values: Fabienne 5 year model risk: 1.9%. NCI Lifetime model risk: 9.3%. Prior Study Comparison: 07/02/2011 Bilateral Diagnostic Mammogram, [facility]. 04/29/2021 Bilateral Screening Mammogram, [facility]. 04/30/2022 Bilateral MG screening mammo w CAD, [facility]. Tissue Density: The breasts are heterogeneously dense, which may obscure small masses. Findings: Analyzed By CAD. There is no suspicious group of microcalcifications or new suspicious mass in either breast. Implants are intact. Overall Assessment: Benign, BI-RAD 2 Management: Screening Mammogram of both breasts in 1 year. . Patient should continue monthly self-breast exams. A clinical breast exam by your physician is recommended on an annual basis. This exam should not preclude additional follow-up of suspicious palpable abnormalities. Note on Fabienne scores and lifetime risk: 1. A Fabienne score greater than 3% is considered moderate risk. If this is the case, consider specialist referral to assess eligibility for a risk reducing agent. 2. If overall lifetime risk for the development of breast cancer is 20% or higher, the patient may qualify for future screening with alternating mammogram and breast MRI. Electronically signed and approved by: Daquan Chapin M.D. Radiologis
== END ==
LOC: WWCWWP 07:16
PROVIDERS: ATTEND Obstetrics & Gynecology
DX: Z12.31 Encounter for screening mammogram for malignant neoplasm of breast (principal); E78.5 Hyperlipidemia, unspecified; I10 Essential (primary) hypertension; N95.8 Other specified menopausal and perimenopausal disorders; F17.210 Nicotine dependence, cigarettes, uncomplicated; F41.9 Anxiety disorder, unspecified; Z90.722 Acquired absence of ovaries, bilateral; Z90.710 Acquired absence of both cervix and uterus; Z90.49 Acquired absence of other specified parts of digestive tract; Z78.0 Asymptomatic menopausal state; Z79.899 Other long term (current) drug therapy
CPT/HCPCS: 77067

== ENCOUNTER → 2023-06-30 | Outpatient (CLI) | payer BC ==
[2023-06-30 18:06] LABS: ALT 29 U/L (8-44); AST 35 U/L (13-35); Albumin 4.7 g/dL (3.8-4.9); Albumin/Globulin Ratio 2.04 Ratio (1.60-3.17); Alkaline Phosphatase 110 U/L (41-126); BUN/Creat Ratio 24.33 Ratio (12.00-20.00); Blood Urea Nitrogen 21.9 mg/dL (9.0-27.0); Carbon Dioxide 28.1 mmol/L (21.6-31.8); Chloride 104 mmol/L (96-109); Chol/HDL Ratio 2.82 Ratio; Globulin 2.3 g/dL (1.6-3.3); Glucose 78 mg/dL (70-110); LDL Cholesterol,Calculated 88.6 mg/dL (0.0-131.0); Potassium 4.4 mmol/L (3.5-5.5); Sodium 141 mmol/L (135-145); Total Bilirubin 0.9 mg/dL (0.3-1.2); VLDL Calculation 19.76 mg/dL (5.00-40.00)
== END | disposition home or self-care (01) ==
LOC: LABWHC1 07:50
PROVIDERS: ATTEND Internal Medicine Interventional Cardiology
DX: E78.2 Mixed hyperlipidemia (principal)
CPT/HCPCS: 36415; 80053; 80061

== ENCOUNTER → 2023-07-30 | Outpatient (CLI) | payer BC ==
--- NOTE | 2023-07-30 08:47 | BD ---
EXAMINATION TYPE: Axial Bone Density DATE OF EXAM: 07/30/2023 CLINICAL HISTORY: 63 years old Female. ICD-10 CODE: Z78.0 ASYMPTOMATIC MENOPAUSAL STATE Height: 62.2 Weight: 135 FRAX RISK QUESTIONS: Glucocorticoids (More than 3mos): yes (Ex: prednisone, prednisolone, methylprednisolone, dexamethasone, and hydrocortisone). Secondary Osteoporosis: yes 3. Menopause before 45: yes, 32 total hyst Current Tobacco Use: yes RISK FACTORS HISTORY OF: nothing to note here. MEDICATIONS: bp meds, zoloft, hormones (Estradial), vit d and calcium EXAM MEASUREMENTS: Bone mineral densitometry was performed using the [employer] System. Bone mineral density as measured about the Lumbar spine is: ----- L1-L4(G/cm2): 1.137 T Score Values are as follows: ----- L1: -0.6 ----- L2: -0.1 ----- L3: -0.1 ----- L4: -0.8 ----- L1-L4: -0.4 Z Score Values are as follows: ----- L1: 0.8 ----- L2: 1.3 ----- L3: 1.4 ----- L4: 0.6 ----- L1-L4: 1.1 Bone mineral density has: Increased 0.4% since study of: 02.21.2021 Bone mineral density about the R hip (g/cm2): 0.842 Bone mineral density about the L hip (g/cm2): 0.947 T Score values are as follows: -----R Neck: -1.7 -----L Neck: -1.2 -----R Total: -1.3 -----L Total: -0.5 Z Score values are as follows: -----R Neck: -0.3 -----L Neck: 0.2 -----R Total: -0.2 -----L Total: 0.6 Bone mineral density has: Increased 3.2% since study of: 02.21.2021 FRAX%s: The graph provided illustrates a 14.8% chance for a major osteoporotic fx and a 3.1% chance f or the hips probability for fx in 10 years time. IMPRESSION: Osteopenia (T Score between -2.5 and -1). There is slightly increased risk of fracture and the patient may be considered for treatment. Re-Screen 2-5 years. NOTE: T-SCORE=SD OF THE YOUNG ADULT MEAN.
== END | disposition home or self-care (01) ==
LOC: RADBDWWP 07:42
PROVIDERS: ATTEND Obstetrics & Gynecology
DX: M85.89 Other specified disorders of bone density and structure, multiple sites (principal); Z78.0 Asymptomatic menopausal state
CPT/HCPCS: 77080

== ENCOUNTER → 2024-05-23 | Outpatient (CLI) | payer BC ==
[2024-05-23 17:06] LABS: ALT 29 U/L (8-44); AST 31 U/L (13-35); Albumin 4.5 g/dL (3.8-4.9); Albumin/Globulin Ratio 2.05 Ratio (1.60-3.17); Alkaline Phosphatase 112 U/L (41-126); BUN/Creat Ratio 22.67 Ratio (12.00-20.00); Blood Urea Nitrogen 20.4 mg/dL (9.0-27.0); Calcium 9.6 mg/dL (8.7-10.3); Carbon Dioxide 28.7 mmol/L (21.6-31.8); Chloride 104 mmol/L (96-109); Chol/HDL Ratio 3.38 Ratio; Globulin 2.2 g/dL (1.6-3.3); Glucose 86 mg/dL (70-110); LDL Cholesterol,Calculated 92.2 mg/dL (0.0-131.0); Potassium 4.1 mmol/L (3.5-5.5); Sodium 142 mmol/L (135-145); Total Bilirubin 0.9 mg/dL (0.3-1.2); Total Protein 6.7 g/dL (6.2-8.2)
== END | disposition home or self-care (01) ==
LOC: LABWHC1 08:03
PROVIDERS: ATTEND Internal Medicine Interventional Cardiology
DX: E78.2 Mixed hyperlipidemia (principal)
CPT/HCPCS: 36415; 80053; 80061

== ENCOUNTER → 2024-07-18 | Outpatient (CLI) | payer BC ==
[2024-07-18 15:53] VITALS: BP 127/85; PULSE 77; RESP 16; TEMP 97.8
--- NOTE | 2024-07-19 10:09 | P.HPOB ---
History of Present Illness H&P Date: 07/18/24 Chief Complaint: The patient is here for her routine gynecologic exam. This is a 64-year-old G2, P2 with an LMP of 1993. She is status post ROMULO/BSO for benign reasons. She was taking estradiol 0.5 mg daily and states she went and from this dose and stopped the estradiol about 4 months ago. She states her Zoloft prescription ran out about 3 months ago. She states she has not been able to get a hold of her PCP to have this refilled. She states she has been experiencing lots of hot flashes, short tempered and anxious being off of both medications. She is also complaining of worsening urinary incontinence. She has instant leaking with coughing, laughing, and sneezing. She also has been getting up about 6 times per night to urinate. She states she does void large amounts when she does urinate. Review of Systems The patient has gained 6 pounds over the last year. She denies respiratory, cardiac, or G.I. problems. : See the HPI. Past Medical History Past Medical History: Hyperlipidemia, Hypertension Additional Past Medical History / Comment(s): KIDNEY STONES, migraine. 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 History of Any Multi-Drug Resistant Organisms: None Reported Past Surgical History: Adenoidectomy, Appendectomy, Breast Surgery, Cholecystectomy, Hysterectomy, Orthopedic Surgery, Tonsillectomy Additional Past Surgical History / Comment(s): ROMULO/BSO 1993. BL knee arthroscopies and open bilateral knee surgeries, L hip cyst removed., LEFT URETERAL CALCULUS- LITHOTRIPSY WITH STONE BASKETING AND STENT (05/30/16). Bilateral breast implants. Past Anesthesia/Blood Transfusion Reactions: No Reported Reaction Past Psychological History: Anxiety Additional Psychological History / Comment(s): . Smoking Status: Current every day smoker (About 5 cigarettes/day.) Past Alcohol Use History: Occasional (1 drink every 6 weeks.) Additional Past Alcohol Use History / Comment(s): Pt started smoking in 1979 and is less than half pack/day smoker Past Drug Use History: None Reported Additional History: She has been since 2012 and this is her second marriage. She is sexually active. 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 Her elderly father with Parkinson's disease lives with her. - Past Family History Mother Family Medical History: No Reported History Father Family Medical History: Coronary Artery Disease (CAD), Myocardial Infarction (MA), Neurologic Disorder Additional Family Medical History / Comment(s): Parkinson's disease. Medications and Allergies Home Medications Medication Instructions Recorded Confirmed Type Atorvastatin [Lipitor] 20 mg PO DAILY 03/24/22 07/18/24 History Metoprolol Tartrate 25 mg PO DAILY 03/24/22 07/18/24 History amLODIPine [Norvasc] 2.5 mg PO DAILY 03/24/22 07/18/24 History estradioL [Estrace] 0.5 mg PO DAILY #90 tablet 10/07/23 07/18/24 Rx Allergies Allergy/AdvReac Type Severity Reaction Status Date / Time No Known Allergies Allergy Verified 07/18/24 15:49 Exam Vital Signs Temp Pulse Resp BP Pulse Ox 07/18/24 15:50 97.8 F 77 16 127/85 99 Intake and Output 07/18/24 07/19/24 07/19/24 22:59 06:59 14:59 Other: Weight 65.317 kg Height 5 feet 2 inches, weight 144 pounds, BMI 26.3. This is a well-developed well-nourished white female who is alert and oriented times 3 in no acute distress. HEENT: Within normal limits. NECK: Supple without mass or thyromegaly. CHEST AND LUNGS: Clear to auscultation. HEART: Regular rate and rhythm. BREASTS: Are without mass or discharge. AXILLARY EXAM: Negative for adenopathy. BACK: Negative for CVA tenderness. ABDOMEN: Soft, nontender, without palpable masses. PELVIC EXAM: External genitalia appears normal with mild atrophy. Vagina appears normal with mild atrophy. There is no evidence of prolapse at rest. There is mild urethral mobility with cough and Valsalva. No urinary leakage was demonstrated. Bimanual examination is negative for mass or tenderness. RECTAL EXAM: Rectovaginal exam is negative for mass or tenderness and is negative for occult blood. There is good sphincter tone. EXTREMITIES: Nontender. IMPRESSION: 1. 64-year-old menopausal female status post ROMULO/BSO with normal gynecologic exam. 2. Worsening stress urinary incontinence with mild urethral mobility. 3. Vasomotor symptoms along with feelings of being short tempered and anxiety after weaning off of estradiol and running out of her Zoloft prescription during the past 3 to 4 months. 4. Osteopenia. PLAN: 1. Pap smears have been discontinued. 2. Mammogram is due in August and the order slip was given to the patient for this. 3. Self breast awareness was discussed with the patient. We have also discussed symptoms associated with inflammatory breast cancer. 4. The patient will be restarted on the Zoloft 50 mg p.o. daily. I will give her a prescription for 3 months. She states she plans to establish with a new PCP. She understands that I would expect her to get future prescriptions through her PCP for this. This prescription will be given to her since she states she has been unable to get a hold of her PCP for this. We will see if this helps with her vasomotor symptoms. We have had a long discussion about why I would like her to stay off of ERT. We again reviewed increasing risk for blood clots and stroke and because of these risks I feel it would be best to stay off of ERT. She understands that SSRI medications, like Zoloft, can often help with vasomotor symptoms. The electronic prescription will be sent to [facility] pharmacy on . Other nonmedical suggestions for vasomotor symptoms was also discussed. She was instructed to call if this continues to be an ongoing problem. 5. We have discussed the importance of Kegel exercises and timed voids and emptying the bladder as completely as possible when she does void. She states she would like a referral for further evaluation and possible treatment for FELISHA. She will be referred to Dr. Lake Acharya, the urogynecologist. 6. Osteoporosis prevention was discussed. She will repeat her bone density test in 1 year. 7. She was advised to return in one year for her annual well woman exam and as needed.
== END | disposition home or self-care (01) ==
LOC: WWCWWP 15:30
PROVIDERS: ATTEND Obstetrics & Gynecology
DX: Z01.419 Encounter for gynecological examination (general) (routine) without abnormal findings (principal); N39.3 Stress incontinence (female) (male); F41.9 Anxiety disorder, unspecified; M85.80 Other specified disorders of bone density and structure, unspecified site; R68.89 Other general symptoms and signs; F17.210 Nicotine dependence, cigarettes, uncomplicated; Z78.0 Asymptomatic menopausal state; Z90.710 Acquired absence of both cervix and uterus; Z90.722 Acquired absence of ovaries, bilateral

== ENCOUNTER → 2024-10-30 | Outpatient (CLI) | payer BC ==
--- NOTE | 2024-10-30 08:17 | MM ---
Reason for Exam: Screening (asymptomatic). Last mammogram was performed 1 year(s) and 4 month(s) ago. Patient History: Menarche at age 15. First Full-Term at age 28. Left ovary removed at age 33. Right ovary removed at age 33. Hysterectomy at age 33. Postmenopausal. Patient has history of breast feeding. Currently using Estrogen, beginning at age 33 for 28 years. 01/28/2012, Benign Core Biopsy on the right side. 01/28/2012, Benign Cyst Aspiration on the right side. 09/25/2004, Cyst Aspiration on the Right side. 1986, Bilateral Implants. Risk Values: Fabienne 5 year model risk: 2.0%. NCI Lifetime model risk: 9.0%. Prior Study Comparison: 04/29/2021 Bilateral Screening Mammogram, [facility]. 04/30/2022 Bilateral MG screening mammo w CAD, [facility]. 06/30/2023 Bilateral MG screening mammo w CAD, [facility]. Tissue Density: The breasts are heterogeneously dense, which may obscure small masses. Findings: Analyzed By CAD. Mammotome biopsy clip in the right breast is redemonstrated. Bilateral breast implants again seen. Some dystrophic calcifications right breast are again seen. There is no suspicious new group of microcalcifications or new suspicious mass in either breast. Overall Assessment: Benign, BI-RAD 2 Management: Screening Mammogram of both breasts in 1 year. . Patient should continue monthly self-breast exams. A clinical breast exam by your physician is recommended on an annual basis. This exam should not preclude additional follow-up of suspicious palpable abnormalities. Note on Fabienne scores and lifetime risk: 1. A Fabienne score greater than 3% is considered moderate risk. If this is the case, consider specialist referral to assess eligibility for a risk reducing agent. 2. If overall lifetime risk for the development of breast cancer is 20% or higher, the patient may qualify for future screening with alternating mammogram and breast MRI. [facility], , 10/30/2024 8:14 AM. Electronically signed and approved by: Kendall Quintero M.D.
[2024-10-30 11:01] LABS: ALT 20 U/L (8-44); AST 27 U/L (13-35); Albumin 4.6 g/dL (3.8-4.9); Albumin/Globulin Ratio 2.42 Ratio (1.60-3.17); Alkaline Phosphatase 95 U/L (41-126); Anion Gap 11.40 mmol/L (4.00-12.00); BUN/Creat Ratio 22.00 Ratio (12.00-20.00); Blood Urea Nitrogen 19.8 mg/dL (9.0-27.0); Calcium 9.0 mg/dL (8.7-10.3); Carbon Dioxide 25.6 mmol/L (21.6-31.8); Chloride 108 mmol/L (96-109); Cholesterol 164.00 mg/dL (0.00-200.00); Globulin 1.9 g/dL (1.6-3.3); Glucose 84 mg/dL (70-110); HDL Cholesterol 56.40 mg/dL (40.00-60.00); LDL Cholesterol,Calculated 83.2 mg/dL (0.0-131.0); Potassium 4.2 mmol/L (3.5-5.5); Sodium 145 mmol/L (135-145); Total Protein 6.5 g/dL (6.2-8.2); Triglycerides 122.00 mg/dL (0.00-149.00); VLDL Calculation 24.40 mg/dL (5.00-40.00)
== END | disposition home or self-care (01) ==
LOC: RADMAMWWP 07:28
PROVIDERS: ATTEND Obstetrics & Gynecology
DX: Z12.31 Encounter for screening mammogram for malignant neoplasm of breast (principal); E78.2 Mixed hyperlipidemia; I10 Essential (primary) hypertension; R92.333 Mammographic heterogeneous density, bilateral breasts; R92.1 Mammographic calcification found on diagnostic imaging of breast; Z78.0 Asymptomatic menopausal state; Z98.82 Breast implant status
CPT/HCPCS: 77063; 77067; 80053; 80061